=== PATIENT | female | born 1945 | race Caucasian/White ===

== ENCOUNTER 2017-11-20 14:29 | Inpatient (IN) | payer MEDICARE, BC ==
[2017-11-20] MEDS ORDERED: Sodium Chloride 0.9% 1,000 ML IV SCH (16:00)
--- NOTE | 2017-11-20 16:54 | EDM.PDOC ---
ED HPI GENERAL MEDICAL PROBLEM - General Chief Complaint: Neurological Problem Stated Complaint: [facility] Time Seen by Provider: 11/20/17 16:49 Source of Information: Reports: Patient History Limitations: Reports: No Limitations - History of Present Illness INITIAL COMMENTS - FREE TEXT/NARRATIVE: pt was transfered here from [facility] in [place]. She passed out and it appeared she could have had a seizure . The pt was there for a routine check for her lymphoma. She has had some episodes of being lite headed in the past week. She had a Angiogram at [facility] which did not show sig findings, She is drinking quite heavily. She did fall last week. She is trying to cut back on her drinking. She admits to 6-7 drinks daily. Onset: Today, Sudden Duration: Hour(s): Location: Reports: Head Associated Symptoms: Reports: Syncope, Other (possible seizure activity. ) Generalized Pain Score (Numeric/FACES): 2 - Related Data Allergies Allergy/AdvReac Type Severity Reaction Status Date / Time adhesive tape Allergy Itching Verified 03/07/17 12:51 minocycline Allergy Rash Verified 03/07/17 12:51 rituximab Allergy Itching Verified 03/07/17 12:51 tetracycline Allergy Rash Verified 03/07/17 12:51 Home Meds: Home Meds Acetaminophen [Tylenol Extra Strength] 500 mg PO Q6H PRN 03/07/17 [History] Apixaban [Eliquis] 5 mg PO BID 03/07/17 [History] DULoxetine [Cymbalta] 30 mg PO DAILY 03/07/17 [History] DULoxetine [Cymbalta] 60 mg PO DAILY 03/07/17 [History] Fenofibrate 160 mg PO DAILY 03/07/17 [History] Gabapentin [Neurontin] 1,200 mg PO TID 03/07/17 [History] Metoprolol Succinate [Toprol XL] 1 tab PO BID 03/07/17 [History] Diltiazem [Cardizem CD] 120 mg PO DAILY #30 cap.cd 11/22/17 [Rx] Levothyroxine [Synthroid] 100 mcg PO ACBREAKFAST #30 tablet 11/22/17 [Rx] Lisinopril [Prinivil] 10 mg PO BID #60 tablet 11/22/17 [Rx] Metoprolol Succinate [Toprol XL] 25 mg PO BID #60 tab.er 11/22/17 [Rx] Sulfamethoxazole/Trimethoprim [Septra DS] 1 each PO BID #6 tab 11/22/17 [Rx] Past Medical History Cardiovascular History: Reports: Afib, CAD, High Cholesterol, Hypertension Respiratory History: Reports: SOB, Other (See Below) Other Respiratory History: breathing function test Gastrointestinal History: Reports: Other (See Below) Other Gastrointestinal History: prolapsed rectum 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: 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 Musculoskeletal History: Reports: Arthritis Neurological History: Reports: Neuropathy, Peripheral, Other (See Below) Other Neuro History: tremor Endocrine/Metabolic History: Reports: Hypothyroidism Hematologic History: Reports: Other (See Below) Other Hematologic History: lymphoma Oncologic (Cancer) History: Reports: Lymphoma - Infectious Disease History Infectious Disease History: Reports: Shingles - Past Surgical History Cardiovascular Surgical History: Reports: Percutaneous Transluminal Angioplasty GI Surgical History: Reports: Appendectomy, Colonoscopy, Other (See Below) Other GI Surgeries/Procedures: rectum fixed with mesh Female Surgical History: Reports: Hysterectomy, Salpingo-Oophorectomy Social & Family History - Tobacco Use Smoking Status *Q: Former Smoker Used Tobacco, but Quit: Yes Month/Year Tobacco Last Used: 10 - Caffeine Use Caffeine Use: Reports: Coffee Other Caffeine Use: seldom - Alcohol Use Days Per Week of Alcohol Use: 7 Number of Drinks Per Day: 6 Total Drinks Per Week: 42 - Recreational Drug Use Recreational Drug Use: No ED ROS GENERAL - Review of Systems Review Of Systems: See Below Constitutional: Reports: Weakness, Fatigue HEENT: Reports: No Symptoms Respiratory: Reports: No Symptoms Cardiovascular: Reports: No Symptoms Endocrine: Reports: No Symptoms GI/Abdominal: Reports: No Symptoms : Reports: No Symptoms Musculoskeletal: Reports: No Symptoms Skin: Reports: No Symptoms Neurological: Reports: Syncope, Other ( There is a question of seizure activity. ) Psychiatric: Reports: Depression, Other (Pt is drinking heavily) - Physical Exam Exam: See Below Text/Narrative:: Pt has a past history of lymphoma and was at oncology for a follow up. She had an episode of syncope. There waas some tremor so she may have had a seizure. Exam Limited By: Other (Pt has a etoh level of .6) General Appearance: Alert, No Apparent Distress, Other ( Pt is hypotensive. pupils are equal and reactive. ) Ears: Normal TMs Nose: Normal Inspection Throat/Mouth: Normal Inspection Head Exam: Atraumatic Neck: Normal Inspection Respiratory/Chest: No Respiratory Distress Cardiovascular: Regular Rate, Rhythm, Bradycardia, Other ( Pt has a heart rate of 47. ) GI/Abdominal: Soft, Non-Tender (Female) Exam: Deferred Rectal (Female) Exam: Deferred Neuro Exam (Abbreviated): Alert, Oriented, Normal Cognition Back Exam: Normal Inspection Extremities: Normal Inspection Psychiatric: Depressed Mood Course - Vital Signs Last Recorded V/S: Last Vital Signs Temp 37.1 C 11/22/17 07:28 Pulse 80 11/22/17 09:08 Resp 12 11/22/17 07:28 BP 188/86 H 11/22/17 09:08 Pulse Ox 98 11/22/17 07:28 Orthostatic Blood Pressure [ 84/43 Standing] Orthostatic Blood Pressure [ 92/48 Sitting] Orthostatic Blood Pressure [ 99/49 Supine] - Orders/Labs/Meds Labs: Laboratory Tests 11/20/17 11/20/17 11/20/17 Range/Units 15:34 15:34 15:34 WBC 7.4 (4.5-11.0) K/uL RBC 4.30 (3.30-5.50) M/uL Hgb 13.5 (12.0-15.0) g/dL Hct 39.2 (36.0-48.0) % MCV 91 (80-98) fL MCH 31 (27-31) pg MCHC 34 (32-36) % Plt Count 207 (150-400) K/uL Neut % (Auto) 71 H (36-66) % Lymph % (Auto) 8 L (24-44) % [place] % (Auto) 18 H (2-6) % Eos % (Auto) 2 (2-4) % Baso % (Auto) 0 (0-1) % Sodium 133 L (140-148) mmol/L Potassium 3.3 L (3.6-5.2) mmol/L Chloride 98 L (100-108) mmol/L Carbon Dioxide 25 (21-32) mmol/L Anion Gap 13.3 (5.0-14.0) mmol/L BUN 33 H (7-18) mg/dL Creatinine 1.8 H (0.6-1.0) mg/dL Est Cr Clr Drug Dosing 22.68 mL/min Estimated GFR (MDRD) 28 L (>60) Glucose 138 H (74-106) mg/dL Calcium 9.9 (8.5-10.1) mg/dL Total Bilirubin 0.7 (0.2-1.0) mg/dL AST 37 (15-37) U/L ALT 42 (12-78) U/L Alkaline Phosphatase 58 (46-116) U/L Troponin I < 0.017 (0.000-0.056) ng/mL Total Protein 6.6 (6.4-8.2) g/dL Albumin 3.6 (3.4-5.0) g/dL Globulin 3.0 (2.3-3.5) g/dL Albumin/Globulin Ratio 1.2 (1.2-2.2) TSH, Ultra Sensitive (0.358-3.740) uIU/mL Ethyl Alcohol 60 mg/dL 11/20/17 Range/Units 16:34 WBC (4.5-11.0) K/uL RBC (3.30-5.50) M/uL Hgb (12.0-15.0) g/dL Hct (36.0-48.0) % MCV (80-98) fL MCH (27-31) pg MCHC (32-36) % Plt Count (150-400) K/uL Neut % (Auto) (36-66) % Lymph % (Auto) (24-44) % [place] % (Auto) (2-6) % Eos % (Auto) (2-4) % Baso % (Auto) (0-1) % Sodium (140-148) mmol/L Potassium (3.6-5.2) mmol/L Chloride (100-108) mmol/L Carbon Dioxide (21-32) mmol/L Anion Gap (5.0-14.0) mmol/L BUN (7-18) mg/dL Creatinine (0.6-1.0) mg/dL Est Cr Clr Drug Dosing mL/min Estimated GFR (MDRD) (>60) Glucose (74-106) mg/dL Calcium (8.5-10.1) mg/dL Total Bilirubin (0.2-1.0) mg/dL AST (15-37) U/L ALT (12-78) U/L Alkaline Phosphatase (46-116) U/L Troponin I (0.000-0.056) ng/mL Total Protein (6.4-8.2) g/dL Albumin (3.4-5.0) g/dL Globulin (2.3-3.5) g/dL Albumin/Globulin Ratio (1.2-2.2) TSH, Ultra Sensitive 6.640 H (0.358-3.740) uIU/mL Ethyl Alcohol mg/dL Meds: Medications Discontinued Medications Generic Name Dose Route Start Last Admin Trade Name Freq PRN Reason Stop Dose Admin Acetaminophen 650 mg 11/20/17 19:30 11/20/17 20:34 Tylenol PO 650 mg Q4H PRN Administration Pain (Mild 1-3)/fever Apixaban 5 mg 11/20/17 21:00 11/22/17 09:07 Eliquis PO 5 mg BID NICOLA Administration Diltiazem HCl 120 mg 11/21/17 09:00 11/22/17 09:08 Cardizem Cd PO 120 mg DAILY NICOLA Administration Duloxetine HCl 60 mg 11/21/17 09:00 11/22/17 09:09 Cymbalta PO 60 mg DAILY NICOLA Administration Fenofibrate 134 mg 11/21/17 09:00 11/22/17 09:07 Fenofibrate PO 134 mg DAILY NICOLA Administration Folic Acid 1 mg 11/20/17 19:30 11/22/17 09:07 Folic Acid PO 1 mg DAILY NICOLA Administration Gabapentin 400 mg 11/20/17 21:00 11/21/17 08:24 Neurontin PO 400 mg TID NICOLA Administration Gabapentin 600 mg 11/21/17 14:00 11/22/17 09:07 Neurontin PO 600 mg TID NICOLA Administration Hydralazine HCl 10 mg 11/22/17 01:10 11/22/17 01:32 Apresoline IVPUSH 10 mg Q4H PRN Administration Hypertension Sodium Chloride 1,000 mls @ 500 mls/hr 11/20/17 16:00 11/20/17 16:32 Normal Saline IV 500 mls/hr ASDIRECTED NICOLA Administration Sodium Chloride 1,000 mls @ 125 mls/hr 11/20/17 19:30 11/21/17 04:37 Normal Saline IV 125 mls/hr ASDIRECTED NICOLA Administration Ceftriaxone Sodium 1 gm/ 50 mls @ 100 mls/hr 11/20/17 22:00 11/21/17 21:07 Sodium Chloride IV 100 mls/hr Q24H NICOLA Administration Levothyroxine Sodium 88 mcg 11/21/17 07:30 11/21/17 08:25 Synthroid PO 88 mcg ACBREAKFAST NICOLA Administration Levothyroxine Sodium 100 mcg 11/22/17 07:30 11/22/17 07:49 Synthroid PO 100 mcg ACBREAKFAST NICOLA Administration Lisinopril 10 mg 11/22/17 09:00 11/22/17 09:08 Prinivil PO 10 mg BID NICOLA Administration Lorazepam 0 mg 11/20/17 19:30 11/21/17 23:13 Ativan PO 1 mg ASDIRECTED NICOLA Administration Protocol Lorazepam 0 mg 11/20/17 19:30 Ativan IV ASDIRECTED NICLOA Protocol Magnesium Hydroxide 30 ml 11/20/17 19:30 Milk Of Magnesia PO Q12H PRN Constipation Metoprolol Succinate 25 mg 11/21/17 09:00 11/22/17 09:08 Toprol Xl PO 25 mg BID NICOLA Administration Ondansetron HCl 4 mg 11/20/17 19:30 Zofran IV Q4H PRN Nausea/Vomiting Oxycodone HCl 5 mg 11/20/17 20:12 11/22/17 09:07 Oxycodone PO 5 mg Q4H PRN Administration Pain Polyethylene Glycol 17 gm 11/20/17 19:30 Miralax PO DAILY PRN Constipation Potassium Chloride 40 meq 11/20/17 19:30 11/20/17 20:31 Klor-Con M20 PO 11/20/17 19:31 40 meq ONETIME ONE Administration Senna/Docusate Sodium 1 tab 11/20/17 19:30 Senna Plus PO BID PRN Constipation Sodium Chloride 10 ml 11/20/17 19:30 Saline Flush FLUSH ASDIRECTED PRN Keep Vein Open Thiamine HCl 100 mg 11/20/17 19:30 11/22/17 09:07 Vitamin B-1 PO 100 mg DAILY NICOLA Administration - Re-Assessments/Exams Free Text/Narrative Re-Assessment/Exam: 11/22/17 18:11 cat scan of th head was normal. Departure - Departure Time of Disposition: 09:10 Disposition: Admitted As Inpatient 64 Condition: Fair Clinical Impression: AA (alcohol abuse), Hypotension, Syncope - Discharge Information
--- NOTE | 2017-11-20 18:50 | PCM.HP ---
H&P History of Present Illness - General Date of Service: 11/20/17 Admit Problem/Dx: Admission Diagnosis/Problem Admission Diagnosis/Problem Syncope Source of Information: Patient, Family, Provider, RN Notes Reviewed History Limitations: Reports: No Limitations - History of Present Illness Initial Comments - Free Text/Narative: Ms. Aguilera is a 72-year-old woman who is admitted through the emergency department after experiencing a syncopal episode earlier this afternoon. She was in the oncologist's office for follow-up of her lymphoma, when she sat up on the exam table felt very weak and lightheaded and quickly passed out. There was some mild shaking after she passed out but this did not appear to be a full- blown seizure. She has had ongoing difficulty with weakness and shortness of breath, recently completed cardiac evaluation including angiogram. She was told that she had mild coronary artery disease but did not require intervention. She is recently been seen by pulmonology and did undergo pulmonary function studies , she is still waiting for those results. She has a known history of paroxysmal atrial fibrillation. Her dose of metoprolol has been doubled within the past several weeks. She does drink alcohol daily and her alcohol level was elevated when evaluated in the emergency department. She denies any symptoms of chest pain or pressure and there is been no evidence of underlying infection. Blood pressure was significantly low when she presented to the emergency department with systolic pressures in the 70s and heart rate has been in the 40s and 50s. - Related Data Allergies/Adverse Reactions: Allergies Allergy/AdvReac Type Severity Reaction Status Date / Time adhesive tape Allergy Itching Verified 03/07/17 12:51 minocycline Allergy Rash Verified 03/07/17 12:51 rituximab Allergy Itching Verified 03/07/17 12:51 tetracycline Allergy Rash Verified 03/07/17 12:51 Home Medications: Home Meds Acetaminophen [Tylenol Extra Strength] 500 mg PO Q6H PRN 03/07/17 [History] Apixaban [Eliquis] 5 mg PO BID 03/07/17 [History] DULoxetine [Cymbalta] 30 mg PO DAILY 03/07/17 [History] DULoxetine [Cymbalta] 60 mg PO DAILY 03/07/17 [History] Diltiazem [Cardizem CD] 240 mg PO DAILY 03/07/17 [History] Fenofibrate 160 mg PO DAILY 03/07/17 [History] Gabapentin [Neurontin] 1,200 mg PO TID 03/07/17 [History] Levothyroxine [Synthroid] 88 mcg PO DAILY 03/07/17 [History] Metoprolol Succinate [Toprol XL] 1 tab PO BID 03/07/17 [History] Past Medical History Cardiovascular History: Reports: Afib, CAD, High Cholesterol, Hypertension Other Cardiovascular History: paroxysmal a- fib Respiratory History: Reports: SOB, Other (See Below) Other Respiratory History: breathing function test Gastrointestinal History: Reports: Other (See Below) Other Gastrointestinal History: prolapsed rectum 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 Musculoskeletal History: Reports: Arthritis Other Musculoskeletal History: degenerative disc cervical Neurological History: Reports: Neuropathy, Peripheral, Other (See Below) Other Neuro History: tremor Psychiatric History: Reports: Addiction, Depression Endocrine/Metabolic History: Reports: Hypothyroidism Hematologic History: Reports: Other (See Below) Other Hematologic History: lymphoma Oncologic (Cancer) History: Reports: Lymphoma Other Oncologic History: left breast Dermatologic History: Reports: Other (See Below) Other Dermatologic History: pruritus - Infectious Disease History Infectious Disease History: Reports: Shingles - Past Surgical History Cardiovascular Surgical History: Reports: Percutaneous Transluminal Angioplasty GI Surgical History: Reports: Appendectomy, Colonoscopy, Other (See Below) Other GI Surgeries/Procedures: rectum fixed with mesh Female Surgical History: Reports: Hysterectomy, Salpingo-Oophorectomy Social & Family History - Tobacco Use Smoking Status *Q: Former Smoker Used Tobacco, but Quit: Yes Month/Year Tobacco Last Used: 10 - Caffeine Use Caffeine Use: Reports: Coffee Other Caffeine Use: seldom - Alcohol Use Days Per Week of Alcohol Use: 7 Number of Drinks Per Day: 6 Total Drinks Per Week: 42 - Recreational Drug Use Recreational Drug Use: No H&P Review of Systems - Review of Systems: Review Of Systems: See Below General: Reports: Weakness, Decreased Appetite. Denies: Fever, Chills HEENT: Reports: No Symptoms Pulmonary: Reports: Shortness of Breath. Denies: Wheezing, Pleuritic Chest Pain , Cough, Sputum Cardiovascular: Reports: Dyspnea on Exertion, Lightheadedness, Syncope. Denies : Chest Pain, Palpitations, Orthopnea, PND, Edema Gastrointestinal: Reports: No Symptoms Genitourinary: Reports: No Symptoms Musculoskeletal: Reports: Neck Pain Skin: Reports: No Symptoms Psychiatric: Reports: No Symptoms Neurological: Reports: No Symptoms Hematologic/Lymphatic: Reports: No Symptoms Immunologic: Reports: No Symptoms Exam - Exam Exam: See Below - Vital Signs Vital Signs: Last Vital Signs Temp 96.1 F 11/20/17 14:41 Pulse 46 L 11/20/17 17:16 Resp 16 11/20/17 17:16 BP 106/56 L 11/20/17 17:16 Pulse Ox 95 11/20/17 17:16 Orthostatic Blood Pressure [ 84/43 Standing] Orthostatic Blood Pressure [ 92/48 Sitting] Orthostatic Blood Pressure [ 99/49 Supine] Weight: 138 lb 11.2 oz - Exam Quality Assessment: DVT Prophylaxis General: Alert, Oriented, Cooperative, Mild Distress HEENT: Conjunctiva Clear, Hearing Intact, Normal Nasal Septum, Posterior Pharynx Clear, Pupils Equal. No: Mucosa Moist & [place] Neck: Supple, Trachea Midline, +2 Carotid Pulse wo Bruit Lungs: Clear to Auscultation, Normal Respiratory Effort Cardiovascular: Regular Rhythm, Normal S1, Normal S2, Bradycardia. No: Systolic Murmur, Diastolic Murmur GI/Abdominal Exam: Soft, Non-Tender, No Organomegaly, No Distention Back Exam: Normal Inspection, Full Range of Motion Extremities: Non-Tender, No Pedal Edema Skin: Warm, Dry, Intact Neurological: Cranial Nerves Intact, Strength Equal Bilateral, Normal Speech, Normal Tone, Sensation Intact. No: Focal Deficit Neuro Extensive - Mental Status: Alert, Oriented x3, Normal Mood/Affect, Normal Cognition, Memory Intact - Patient Data Lab Results Last 24 hrs: Laboratory Results - last 24 hr 11/20/17 11/20/17 11/20/17 Range/Units 15:34 15:34 15:34 WBC 7.4 (4.5-11.0) K/uL RBC 4.30 (3.30-5.50) M/uL Hgb 13.5 (12.0-15.0) g/dL Hct 39.2 (36.0-48.0) % MCV 91 (80-98) fL MCH 31 (27-31) pg MCHC 34 (32-36) % Plt Count 207 (150-400) K/uL Neut % (Auto) 71 H (36-66) % Lymph % (Auto) 8 L (24-44) % [place] % (Auto) 18 H (2-6) % Eos % (Auto) 2 (2-4) % Baso % (Auto) 0 (0-1) % Sodium 133 L (140-148) mmol/L Potassium 3.3 L (3.6-5.2) mmol/L Chloride 98 L (100-108) mmol/L Carbon Dioxide 25 (21-32) mmol/L Anion Gap 13.3 (5.0-14.0) mmol/L BUN 33 H (7-18) mg/dL Creatinine 1.8 H (0.6-1.0) mg/dL Est Cr Clr Drug Dosing 22.68 mL/min Estimated GFR (MDRD) 28 L (>60) Glucose 138 H (74-106) mg/dL Calcium 9.9 (8.5-10.1) mg/dL Total Bilirubin 0.7 (0.2-1.0) mg/dL AST 37 (15-37) U/L ALT 42 (12-78) U/L Alkaline Phosphatase 58 (46-116) U/L Troponin I < 0.017 (0.000-0.056) ng/mL Total Protein 6.6 (6.4-8.2) g/dL Albumin 3.6 (3.4-5.0) g/dL Globulin 3.0 (2.3-3.5) g/dL Albumin/Globulin Ratio 1.2 (1.2-2.2) TSH, Ultra Sensitive (0.358-3.740) uIU/mL Ethyl Alcohol 60 mg/dL 11/20/17 Range/Units 16:34 WBC (4.5-11.0) K/uL RBC (3.30-5.50) M/uL Hgb (12.0-15.0) g/dL Hct (36.0-48.0) % MCV (80-98) fL MCH (27-31) pg MCHC (32-36) % Plt Count (150-400) K/uL Neut % (Auto) (36-66) % Lymph % (Auto) (24-44) % [place] % (Auto) (2-6) % Eos % (Auto) (2-4) % Baso % (Auto) (0-1) % Sodium (140-148) mmol/L Potassium (3.6-5.2) mmol/L Chloride (100-108) mmol/L Carbon Dioxide (21-32) mmol/L Anion Gap (5.0-14.0) mmol/L BUN (7-18) mg/dL Creatinine (0.6-1.0) mg/dL Est Cr Clr Drug Dosing mL/min Estimated GFR (MDRD) (>60) Glucose (74-106) mg/dL Calcium (8.5-10.1) mg/dL Total Bilirubin (0.2-1.0) mg/dL AST (15-37) U/L ALT (12-78) U/L Alkaline Phosphatase (46-116) U/L Troponin I (0.000-0.056) ng/mL Total Protein (6.4-8.2) g/dL Albumin (3.4-5.0) g/dL Globulin (2.3-3.5) g/dL Albumin/Globulin Ratio (1.2-2.2) TSH, Ultra Sensitive 6.640 H (0.358-3.740) uIU/mL Ethyl Alcohol mg/dL Result Diagrams: 11/20/17 15:34 11/20/17 15:34 *Q Meaningful Use (ADM) - VTE *Q VTE Pharmacological Contraindications *Q: High INR Value - VTE Risk Assess *Q Each Risk Factor Represents 1 Point: None Total Score 1 Point Risk Factors: 0 Each Risk Factor Represents 2 Points: Age 60 - 74 Years, Malignancy (present or previous) Total Score 2 Point Risk Factors: 4 Each Risk Factor Represents 3 Points: None Total Score 3 Point Risk Factors: 0 Each Risk Factor Represents 5 Points: None Total Score 5 Point Risk Factors: 0 Venous Thromboembolism Risk Factor Score *Q: 4 Problem List Initiated/Reviewed/Updated: Yes Orders Last 24hrs: Active Orders 24 hr Category Date Time Status Patient Status Manage Transfer [TRANSFER] Routine ADT 11/20/17 18:35 Ordered EKG Documentation Completion [RC] ASDIRECTED Care 11/20/17 15:35 Active Orthostatic Vital Signs [RC] ASDIRECTED Care 11/20/17 15:46 Active Head wo Cont [CT] Stat Exams 11/20/17 16:36 Taken UA W/MICROSCOPIC [URIN] Urgent Lab 11/20/17 15:34 Ordered Sodium Chloride 0.9% [Normal Saline] 1,000 ml Med 11/20/17 16:00 Active IV ASDIRECTED Resuscitation Status Routine Resus Stat 11/20/17 18:39 Ordered EKG 12 Lead [EK] Routine Ther 11/20/17 15:35 Ordered Medication Orders Sodium Chloride (Normal Saline) 1,000 mls @ 500 mls/hr IV ASDIRECTED NICOLA Last Admin: 11/20/17 16:32 Dose: 500 mls/hr Assessment/Plan Comment:: ASSESSMENT AND PLAN SYNCOPAL EPISODE-in the preceding week has had almost daily episodes of lightheadedness, appetite has been poor with poor oral intake. Episode occurred at the oncologist's office after she moved to get onto the examination table. There was brief shaking but this did not appear to be a full-blown seizure. On evaluation in the emergency department she is noted to have significant hypotension and bradycardia which are likely cause of her syncopal episode as well as dehydration. -Cardiac monitoring -Orthostatic vital signs -Hold metoprolol and diltiazem, reassess dosing in a.m. -IV fluids for hydration ACUTE KIDNEY INJURY-likely secondary to dehydration -IV fluids as above -Closely monitor urine output and renal function ALCOHOL DEPENDENCE-history of long-standing daily alcohol use, alcohol level was of elevated when evaluated in the emergency department -Alcohol withdrawal protocol -Gabapentin 400 mg every 8 hours HYPOTHYROIDISM-TSH found to be elevated in the emergency department -Free T4 and free T3 levels in a.m. -Pending on levels assess and adjust current dose of levothyroxine MAINTENANCE ISSUES -DVT prophylaxis; current anticoagulation should provide adequate DVT prophylaxis -GI prophylaxis; not indicated -Espinoza catheter; not indicated -Nutrition; regular diet -Nicotine dependence; not required CODE STATUS-FULL CODE ADMISSION STATUS-patient will be admitted to inpatient status, expect at least a 2 night hospital stay for evaluation and management of problems as outlined above. At the time of this admission I do not reasonably expected evaluation and management of this problem will require more than a 96 hour hospital stay. DISPOSITION-anticipate discharge to home after the hospital stay. PRIMARY CARE PROVIDER-Dr. Alfred
[2017-11-20] MEDS ORDERED: Sodium Chloride 0.9% 10 ML Syringe FLUSH PRN (19:30)
[2017-11-20] MEDS ORDERED: Ondansetron 4 MG/2 ML SDV IV PRN (19:30)
[2017-11-20] MEDS ORDERED: Polyethylene Glycol 3350 Powder 17 GM Packet PO PRN (19:30)
[2017-11-20] MEDS ORDERED: Acetaminophen 325 MG Tab PO PRN (19:30)
[2017-11-20] MEDS ORDERED: LORazepam 2 MG/ML SDV IV SCH (19:30)
[2017-11-20] MEDS ORDERED: LORazepam 1 MG Tab PO SCH (19:30)
[2017-11-20] MEDS ORDERED: Magnesium Hydroxide 400 MG/5 ML Susp 30 ML Cup PO PRN (19:30)
[2017-11-20] MEDS ORDERED: Potassium Chloride 20 MEQ Tab.ER PO ONE (19:30)
[2017-11-20] MEDS: Thiamine 100 MG Tab PO SCH (20:31)
[2017-11-20] MEDS: Sodium Chloride 0.9% 1,000 ML IV SCH (20:31)
[2017-11-20] MEDS: Folic Acid 1 MG Tab PO SCH (20:31)
[2017-11-20] MEDS: Gabapentin 400 MG Cap PO SCH (20:31)
[2017-11-20] MEDS: Apixaban 5 MG Tab PO SCH (20:31)
[2017-11-20] MEDS: oxyCODONE 5 MG Tab PO PRN (20:34)
[2017-11-20] MEDS: cefTRIAXone 1 GM in Sodium Chloride 0.9% 50 ML IV SCH (22:15)
[2017-11-21] MEDS: oxyCODONE 5 MG Tab PO PRN ×3 (03:34→23:13)
[2017-11-21] MEDS: Sodium Chloride 0.9% 1,000 ML IV SCH (04:37)
[2017-11-21] MEDS ORDERED: Levothyroxine 88 MCG Tab PO SCH (07:30)
[2017-11-21] MEDS ORDERED: Levothyroxine 100 MCG Tab PO SCH (07:30)
[2017-11-21] MEDS: Thiamine 100 MG Tab PO SCH (08:24)
[2017-11-21] MEDS: Folic Acid 1 MG Tab PO SCH (08:24)
[2017-11-21] MEDS: Gabapentin 400 MG Cap PO SCH (08:24)
[2017-11-21] MEDS: Apixaban 5 MG Tab PO SCH ×2 (08:24→20:41)
[2017-11-21] MEDS: DULoxetine 30 MG Cap PO SCH (08:25)
[2017-11-21] MEDS: Fenofibrate,Micronized 67 MG Cap PO SCH (08:25)
[2017-11-21] MEDS ORDERED: DILTIAZEM 120 MG PO SCH (09:00)
[2017-11-21] MEDS: Diltiazem 120 MG Cap.CD PO SCH (09:34)
[2017-11-21] MEDS: Metoprolol Succinate 25 MG Tab.ER PO SCH ×2 (09:35→20:41)
--- NOTE | 2017-11-21 09:53 | PCM.PN ---
- General Info Date of Service: 11/21/17 Subjective Update: Ms. Aguilera has been stable since admission yesterday, hypotension has resolved and bradycardia has improved. No significant drop with orthostatic vital signs and no significant dysrhythmias other than bradycardia noted on monitoring. Denies current symptoms of lightheadedness when sitting up in the chair. - Review of Systems General: Reports: Weakness. Denies: Fever, Chills Pulmonary: Reports: No Symptoms Cardiovascular: Reports: No Symptoms Gastrointestinal: Reports: No Symptoms Musculoskeletal: Reports: Neck Pain - Patient Data Vitals - Most Recent: Last Vital Signs Temp 96.7 F 11/21/17 07:54 Pulse 67 11/21/17 09:35 Resp 16 11/21/17 07:54 BP 157/80 H 11/21/17 09:35 Pulse Ox 100 11/21/17 07:54 Orthostatic Blood Pressure [ 177/85 Standing] Orthostatic Blood Pressure [ 202/100 Sitting] Orthostatic Blood Pressure [ 190/96 Supine] Weight - Most Recent: 315 lb 0.649 oz I&O - Last 24 Hours: Intake & Output 11/20/17 11/21/17 11/21/17 22:59 06:59 14:59 Intake Total 50 1392 600 Output Total 75 300 Balance -25 1092 600 Lab Results Last 24 Hours: Laboratory Results - last 24 hr 11/20/17 11/20/17 11/20/17 Range/Units 15:34 15:34 15:34 WBC 7.4 (4.5-11.0) K/uL RBC 4.30 (3.30-5.50) M/uL Hgb 13.5 (12.0-15.0) g/dL Hct 39.2 (36.0-48.0) % MCV 91 (80-98) fL MCH 31 (27-31) pg MCHC 34 (32-36) % Plt Count 207 (150-400) K/uL Neut % (Auto) 71 H (36-66) % Lymph % (Auto) 8 L (24-44) % [place] % (Auto) 18 H (2-6) % Eos % (Auto) 2 (2-4) % Baso % (Auto) 0 (0-1) % Sodium 133 L (140-148) mmol/L Potassium 3.3 L (3.6-5.2) mmol/L Chloride 98 L (100-108) mmol/L Carbon Dioxide 25 (21-32) mmol/L Anion Gap 13.3 (5.0-14.0) mmol/L BUN 33 H (7-18) mg/dL Creatinine 1.8 H (0.6-1.0) mg/dL Est Cr Clr Drug Dosing 22.68 mL/min Estimated GFR (MDRD) 28 L (>60) Glucose 138 H (74-106) mg/dL Calcium 9.9 (8.5-10.1) mg/dL Total Bilirubin 0.7 (0.2-1.0) mg/dL AST 37 (15-37) U/L ALT 42 (12-78) U/L Alkaline Phosphatase 58 (46-116) U/L Troponin I < 0.017 (0.000-0.056) ng/mL Total Protein 6.6 (6.4-8.2) g/dL Albumin 3.6 (3.4-5.0) g/dL Globulin 3.0 (2.3-3.5) g/dL Albumin/Globulin Ratio 1.2 (1.2-2.2) Free T4 (0.76-1.46) ng/dL Free T3 (2.18-3.98) pg/dL TSH, Ultra Sensitive (0.358-3.740) uIU/mL Urine Color Urine Appearance Urine pH (4.5-8.0) Ur Specific [place] (1.008-1.030) Urine Protein (NEGATIVE) mg/dL Urine Glucose (UA) (NEGATIVE) mg/dL Urine Ketones (NEGATIVE) mg/dL Urine Occult Blood (NEGATIVE) Urine Nitrite (NEGATIVE) Urine Bilirubin (NEGATIVE) Urine Urobilinogen (NORMAL) mg/dL Ur Leukocyte Esterase (NEGATIVE) Urine RBC (0-5) Urine WBC (0-5) Ur Epithelial Cells Amorphous Sediment Urine Bacteria Urine Mucus Urine Other Ethyl Alcohol 60 mg/dL 11/20/17 11/20/17 11/21/17 Range/Units 16:34 19:44 05:45 WBC 4.6 (4.5-11.0) K/uL RBC 3.93 (3.30-5.50) M/uL Hgb 12.4 (12.0-15.0) g/dL Hct 36.8 (36.0-48.0) % MCV 94 (80-98) fL MCH 32 H (27-31) pg MCHC 34 (32-36) % Plt Count 190 (150-400) K/uL Neut % (Auto) 62 (36-66) % Lymph % (Auto) 16 L (24-44) % Wetzel % (Auto) 17 H (2-6) % Eos % (Auto) 5 H (2-4) % Baso % (Auto) 0 (0-1) % Sodium (140-148) mmol/L Potassium (3.6-5.2) mmol/L Chloride (100-108) mmol/L Carbon Dioxide (21-32) mmol/L Anion Gap (5.0-14.0) mmol/L BUN (7-18) mg/dL Creatinine (0.6-1.0) mg/dL Est Cr Clr Drug Dosing mL/min Estimated GFR (MDRD) (>60) Glucose (74-106) mg/dL Calcium (8.5-10.1) mg/dL Total Bilirubin (0.2-1.0) mg/dL AST (15-37) U/L ALT (12-78) U/L Alkaline Phosphatase (46-116) U/L Troponin I (0.000-0.056) ng/mL Total Protein (6.4-8.2) g/dL Albumin (3.4-5.0) g/dL Globulin (2.3-3.5) g/dL Albumin/Globulin Ratio (1.2-2.2) Free T4 (0.76-1.46) ng/dL Free T3 (2.18-3.98) pg/dL TSH, Ultra Sensitive 6.640 H (0.358-3.740) uIU/mL Urine Color Yellow Urine Appearance Slightly cloudy Urine pH 5.0 (4.5-8.0) Ur Specific [place] 1.030 (1.008-1.030) Urine Protein Negative (NEGATIVE) mg/dL Urine Glucose (UA) 100 H (NEGATIVE) mg/dL Urine Ketones Negative (NEGATIVE) mg/dL Urine Occult Blood Negative (NEGATIVE) Urine Nitrite Negative (NEGATIVE) Urine Bilirubin Negative (NEGATIVE) Urine Urobilinogen Normal (NORMAL) mg/dL Ur Leukocyte Esterase Small (NEGATIVE) Urine RBC 0-5 (0-5) Urine WBC 10-20 H (0-5) Ur Epithelial Cells Few Amorphous Sediment Not seen Urine Bacteria Moderate Urine Mucus Moderate Urine Other Ethyl Alcohol mg/dL 11/21/17 Range/Units 05:45 WBC (4.5-11.0) K/uL RBC (3.30-5.50) M/uL Hgb (12.0-15.0) g/dL Hct (36.0-48.0) % MCV (80-98) fL MCH (27-31) pg MCHC (32-36) % Plt Count (150-400) K/uL Neut % (Auto) (36-66) % Lymph % (Auto) (24-44) % [place] % (Auto) (2-6) % Eos % (Auto) (2-4) % Baso % (Auto) (0-1) % Sodium 138 L (140-148) mmol/L Potassium 3.9 (3.6-5.2) mmol/L Chloride 105 (100-108) mmol/L Carbon Dioxide 28 (21-32) mmol/L Anion Gap 8.9 (5.0-14.0) mmol/L BUN 28 H (7-18) mg/dL Creatinine 1.1 H (0.6-1.0) mg/dL Est Cr Clr Drug Dosing 37.12 mL/min Estimated GFR (MDRD) 49 L (>60) Glucose 123 H (74-106) mg/dL Calcium 9.0 (8.5-10.1) mg/dL Total Bilirubin (0.2-1.0) mg/dL AST (15-37) U/L ALT (12-78) U/L Alkaline Phosphatase (46-116) U/L Troponin I (0.000-0.056) ng/mL Total Protein (6.4-8.2) g/dL Albumin (3.4-5.0) g/dL Globulin (2.3-3.5) g/dL Albumin/Globulin Ratio (1.2-2.2) Free T4 0.93 (0.76-1.46) ng/dL Free T3 1.93 L (2.18-3.98) pg/dL TSH, Ultra Sensitive (0.358-3.740) uIU/mL Urine Color Urine Appearance Urine pH (4.5-8.0) Ur Specific [place] (1.008-1.030) Urine Protein (NEGATIVE) mg/dL Urine Glucose (UA) (NEGATIVE) mg/dL Urine Ketones (NEGATIVE) mg/dL Urine Occult Blood (NEGATIVE) Urine Nitrite (NEGATIVE) Urine Bilirubin (NEGATIVE) Urine Urobilinogen (NORMAL) mg/dL Ur Leukocyte Esterase (NEGATIVE) Urine RBC (0-5) Urine WBC (0-5) Ur Epithelial Cells Amorphous Sediment Urine Bacteria Urine Mucus Urine Other Ethyl Alcohol mg/dL Med Orders - Current: Current Medications Acetaminophen (Tylenol) 650 mg PO Q4H PRN PRN Reason: Pain (Mild 1-3)/fever Last Admin: 11/20/17 20:34 Dose: 650 mg Apixaban (Eliquis) 5 mg PO BID [facility] Last Admin: 11/21/17 08:24 Dose: 5 mg Diltiazem HCl (Cardizem Cd) 120 mg PO DAILY [facility] Last Admin: 11/21/17 09:34 Dose: 120 mg Duloxetine HCl (Cymbalta) 60 mg PO DAILY [facility] Last Admin: 11/21/17 08:25 Dose: 60 mg Fenofibrate (Fenofibrate) 134 mg PO DAILY [facility] Last Admin: 11/21/17 08:25 Dose: 134 mg Folic Acid (Folic Acid) 1 mg PO DAILY [facility] Last Admin: 11/21/17 08:24 Dose: 1 mg Gabapentin (Neurontin) 400 mg PO TID [facility] Last Admin: 11/21/17 08:24 Dose: 400 mg Ceftriaxone Sodium 1 gm/ (Sodium Chloride) 50 mls @ 100 mls/hr IV Q24H [facility] Last Admin: 11/20/17 22:15 Dose: 100 mls/hr Levothyroxine Sodium (Synthroid) 100 mcg PO ACBREAKFAST [facility] Lorazepam (Ativan) 0 mg PO ASDIRECTED [facility]; Protocol Lorazepam (Ativan) 0 mg IV ASDIRECTED [place]; Protocol Magnesium Hydroxide (Milk Of Magnesia) 30 ml PO Q12H PRN PRN Reason: Constipation Metoprolol Succinate (Toprol Xl) 25 mg PO BID [facility] Last Admin: 11/21/17 09:35 Dose: 25 mg Ondansetron HCl (Zofran) 4 mg IV Q4H PRN PRN Reason: Nausea/Vomiting Oxycodone HCl (Oxycodone) 5 mg PO Q4H PRN PRN Reason: Pain Last Admin: 11/21/17 03:34 Dose: 5 mg Polyethylene Glycol (Miralax) 17 gm PO DAILY PRN PRN Reason: Constipation Senna/Docusate Sodium (Senna Plus) 1 tab PO BID PRN PRN Reason: Constipation Sodium Chloride (Saline Flush) 10 ml FLUSH ASDIRECTED PRN PRN Reason: Keep Vein Open Thiamine HCl (Vitamin B-1) 100 mg PO DAILY [facility] Last Admin: 11/21/17 08:24 Dose: 100 mg Discontinued Medications Sodium Chloride (Normal Saline) 1,000 mls @ 500 mls/hr IV ASDIRECTED [facility] Last Admin: 11/20/17 16:32 Dose: 500 mls/hr Sodium Chloride (Normal Saline) 1,000 mls @ 125 mls/hr IV ASDIRECTED [facility] Last Admin: 11/21/17 04:37 Dose: 125 mls/hr Levothyroxine Sodium (Synthroid) 88 mcg PO ACBREAKFAST [facility] Last Admin: 11/21/17 08:25 Dose: 88 mcg Potassium Chloride (Klor-Con M20) 40 meq PO ONETIME ONE Stop: 11/20/17 19:31 Last Admin: 11/20/17 20:31 Dose: 40 meq - Exam Quality Assessment: DVT Prophylaxis General: Alert, Oriented, Cooperative, Mild Distress Lungs: Clear to Auscultation, Normal Respiratory Effort Cardiovascular: Regular Rhythm, No Murmurs, Bradycardia. No: Irregular Rhythm, Tachycardia GI/Abdominal Exam: Soft, Non-Tender, No Organomegaly, No Distention Extremities: Non-Tender, No Pedal Edema - Problem List Review Problem List Initiated/Reviewed/Updated: Yes - My Orders Last 24 Hours: My Active Orders 11/20/17 18:39 Resuscitation Status Routine 11/20/17 19:30 Patient Status [ADT] Routine Ambulate [RC] QID CIWAA Assessment [RC] Q4H Cardiac Monitoring [RC] Q6H Height and Weight [RC] DAILY Intake and Output [RC] QSHIFT Notify Provider Vital Signs [RC] ASDIRECTED Oxygen Therapy [RC] PRN Peripheral IV Care [RC] . DIRECTED Up With Assistance [RC] ASDIRECTED Up to Chair [RC] QID Vital Signs [RC] Q2H PT Evaluation and Treatment [CONS] Routine Acetaminophen [Tylenol] 650 mg PO Q4H PRN Docusate Sodium/Sennosides [Senna Plus] 1 tab PO BID PRN Folic Acid 1 mg PO DAILY LORazepam [Ativan] See Protocol IV ASDIRECTED LORazepam [Ativan] See Protocol PO ASDIRECTED Magnesium Hydroxide [Milk of Magnesia] 30 ml PO Q12H PRN Ondansetron [Zofran] 4 mg IV Q4H PRN Polyethylene Glycol 3350 [MiraLAX] 17 gm PO DAILY PRN Sodium Chloride 0.9% [Saline Flush] 10 ml FLUSH ASDIRECTED PRN Thiamine [Vitamin B-1] 100 mg PO DAILY Peripheral IV Insertion Adult [OM.PC] Routine VTE Pharmacological Contraindications [AST] Per Unit Routine 11/20/17 20:00 CULTURE URINE [RM] Routine 11/20/17 20:12 oxyCODONE 5 mg PO Q4H PRN 11/20/17 21:00 Apixaban [Eliquis] 5 mg PO BID Gabapentin [Neurontin] 400 mg PO TID 11/20/17 22:00 cefTRIAXone [Rocephin] 1 gm Sodium Chloride 0.9% [Normal Saline] 50 ml IV Q24H 11/20/17 Dinner Regular Diet [DIET] 11/21/17 08:30 Convert IV to Saline Lock [OM.PC] Routine 11/21/17 09:00 DULoxetine [Cymbalta] 60 mg PO DAILY Diltiazem [Cardizem CD] 120 mg PO DAILY Fenofibrate,Micronized [Fenofibrate] 134 mg PO DAILY Metoprolol Succinate [Toprol XL] 25 mg PO BID 11/22/17 05:00 BASIC METABOLIC PANEL,BMP [CHEM] Timed 11/22/17 07:30 Levothyroxine [Synthroid] 100 mcg PO ACBREAKFAST - Plan Plan:: ASSESSMENT AND PLAN SYNCOPAL EPISODE-lightheadedness has resolved, remains somewhat weak. -Cardiac monitoring -Orthostatic vital signs -Resume metoprolol, decrease dose to 25 mg by mouth twice a day -Resume diltiazem CD, decrease dose to 120 mg daily -Saline lock IV ACUTE KIDNEY INJURY-likely secondary to dehydration, renal function improved following hydration -Closely monitor urine output and renal function ALCOHOL DEPENDENCE-history of long-standing daily alcohol use, alcohol level was of elevated when evaluated in the emergency department -Alcohol withdrawal protocol -Gabapentin 400 mg every 8 hours HYPOTHYROIDISM-TSH elevated and T3 level mildly low -Increase levothyroxine to 100 g by mouth daily MAINTENANCE ISSUES -DVT prophylaxis; current anticoagulation should provide adequate DVT prophylaxis -GI prophylaxis; not indicated -Espinoza catheter; not indicated -Nutrition; regular diet -Nicotine dependence; not required CODE STATUS-FULL CODE ADMISSION STATUS-patient will be admitted to inpatient status, expect at least a 2 night hospital stay for evaluation and management of problems as outlined above. At the time of this admission I do not reasonably expected evaluation and management of this problem will require more than a 96 hour hospital stay. DISPOSITION-anticipate discharge to home after the hospital stay. PRIMARY CARE PROVIDER-Dr. Alfred
[2017-11-21] MEDS: Gabapentin 300 MG Cap PO SCH ×2 (13:38→20:39)
[2017-11-21] MEDS ORDERED: Gabapentin 400 MG Cap PO SCH (14:00)
[2017-11-21] MEDS: cefTRIAXone 1 GM in Sodium Chloride 0.9% 50 ML IV SCH (21:07)
[2017-11-22] MEDS ORDERED: hydrALAZINE 20 MG/ML SDV IVPUSH PRN (01:10)
[2017-11-22] MEDS ORDERED: Levothyroxine 100 MCG Tab PO SCH (07:30)
[2017-11-22] MEDS ORDERED: Levothyroxine 88 MCG Tab PO SCH (07:30)
[2017-11-22] MEDS ORDERED: Lisinopril 10 MG Tab PO SCH (09:00)
[2017-11-22] MEDS: Gabapentin 300 MG Cap PO SCH (09:07)
[2017-11-22] MEDS: Apixaban 5 MG Tab PO SCH (09:07)
[2017-11-22] MEDS: Thiamine 100 MG Tab PO SCH (09:07)
[2017-11-22] MEDS: oxyCODONE 5 MG Tab PO PRN (09:07)
[2017-11-22] MEDS: Folic Acid 1 MG Tab PO SCH (09:07)
[2017-11-22] MEDS: Fenofibrate,Micronized 67 MG Cap PO SCH (09:07)
[2017-11-22] MEDS: Metoprolol Succinate 25 MG Tab.ER PO SCH (09:08)
[2017-11-22] MEDS: Diltiazem 120 MG Cap.CD PO SCH (09:08)
[2017-11-22] MEDS: DULoxetine 30 MG Cap PO SCH (09:09)
--- NOTE | 2017-11-22 09:55 | PCM.DCSUM1 ---
Discharge Summary - Hospital Course Brief History: This patient is a 72-year-old woman who was admitted through the emergency department after she experienced a syncopal episode secondary to hypotension and bradycardia. - Discharge Data Discharge Date: 11/22/17 Discharge Disposition: Home, Self-Care 01 Condition: Fair - Discharge Diagnosis/Problem(s) (1) Hypothyroidism (acquired) SNOMED Code(s): 486762024 ICD Code: E03.9 - HYPOTHYROIDISM, UNSPECIFIED Status: Acute Current Visit : Yes (2) Acute kidney injury SNOMED Code(s): 72236756 ICD Code: N17.9 - ACUTE KIDNEY FAILURE, UNSPECIFIED Status: Acute Current Visit: Yes (3) Episode of syncope SNOMED Code(s): 537806809 ICD Code: R55 - SYNCOPE AND COLLAPSE Status: Acute Current Visit: Yes (4) Alcohol dependence SNOMED Code(s): 31141821 ICD Code: F10.20 - ALCOHOL DEPENDENCE, UNCOMPLICATED Status: Chronic Current Visit: No (5) UTI (urinary tract infection) SNOMED Code(s): 96699995 ICD Code: N39.0 - URINARY TRACT INFECTION, SITE NOT SPECIFIED Status: Acute Current Visit: Yes - Patient Summary/Data Consults: Consultations 11/20/17 19:30 PT Evaluation and Treatment [CONS] Routine Please Evaluate and Treat. PT Reason for Consult: Weakness This query below is only for informational purposes and is not editable. Hospital Course: Ms. Aguilera is a 72-year-old woman who is admitted through the emergency department after experiencing a syncopal episode earlier this afternoon. She was in the oncologist's office for follow-up of her lymphoma, when she sat up on the exam table felt very weak and lightheaded and quickly passed out. There was some mild shaking after she passed out but this did not appear to be a full- blown seizure. She has had ongoing difficulty with weakness and shortness of breath, recently completed cardiac evaluation including angiogram. She was told that she had mild coronary artery disease but did not require intervention. She is recently been seen by pulmonology and did undergo pulmonary function studies , she is still waiting for those results. She has a known history of paroxysmal atrial fibrillation. Her dose of metoprolol has been doubled within the past several weeks. She does drink alcohol daily and her alcohol level was elevated when evaluated in the emergency department. She denies any symptoms of chest pain or pressure and there is been no evidence of underlying infection. Blood pressure was significantly low when she presented to the emergency department with systolic pressures in the 70s and heart rate has been in the 40s and 50s. Syncopal episode was felt to be likely related to the hypotension and bradycardia with underlying dehydration. Most likely cause of these effects was felt to be secondary to current medications with metoprolol and diltiazem. She was given IV fluids for hydration and placed in the intensive care unit for more close monitoring. Metoprolol and diltiazem were held at the time of admission. Heart rate and blood pressure improved by the following morning she was restarted on the metoprolol at a lower dose 25 mg twice daily and the diltiazem at a lower dose 120 mg daily. Heart rate improved with these changes but she developed significant hypertension from the changes in medication. On discharge lisinopril 10 mg by mouth twice a day will be added to current regimen to hopefully help with blood pressure control. She had no further symptoms of lightheadedness or episodes of syncope during the hospital stay. She was found to have evidence of urinary tract infection, urine culture was obtained and she was treated with IV Rocephin while in the hospital. Final ID and sensitivities from urine culture pending at the time of discharge she will be discharged with trimethoprim sulfamethoxazole double strength 1 by mouth twice a day for an additional 3 days. Activity will be as tolerated and she will resume her usual diet. Follow-up appointment will be scheduled with her primary care provider within one. - Patient Instructions Diet: Heart Healthy Diet Activity: As Tolerated Other/Special Instructions: Patient has follow-up appointment scheduled with primary care provider within one week. - Discharge Plan *PRESCRIPTION DRUG MONITORING PROGRAM REVIEWED*: Not Applicable *COPY OF PRESCRIPTION DRUG MONITORING REPORT IN PATIENT CLYDE: Not Applicable Prescriptions/Med Rec: Diltiazem [Cardizem CD] 120 mg PO DAILY #30 cap.cd Levothyroxine [Synthroid] 100 mcg PO ACBREAKFAST #30 tablet Lisinopril [Prinivil] 10 mg PO BID #60 tablet Metoprolol Succinate [Toprol XL] 25 mg PO BID #60 tab.er Sulfamethoxazole/Trimethoprim [Septra DS] 1 each PO BID #6 tab Home Medications: Home Meds Acetaminophen [Tylenol Extra Strength] 500 mg PO Q6H PRN 03/07/17 [History] Apixaban [Eliquis] 5 mg PO BID 03/07/17 [History] DULoxetine [Cymbalta] 30 mg PO DAILY 03/07/17 [History] DULoxetine [Cymbalta] 60 mg PO DAILY 03/07/17 [History] Fenofibrate 160 mg PO DAILY 03/07/17 [History] Gabapentin [Neurontin] 1,200 mg PO TID 03/07/17 [History] Metoprolol Succinate [Toprol XL] 1 tab PO BID 03/07/17 [History] Diltiazem [Cardizem CD] 120 mg PO DAILY #30 cap.cd 11/22/17 [Rx] Levothyroxine [Synthroid] 100 mcg PO ACBREAKFAST #30 tablet 11/22/17 [Rx] Lisinopril [Prinivil] 10 mg PO BID #60 tablet 11/22/17 [Rx] Metoprolol Succinate [Toprol XL] 25 mg PO BID #60 tab.er 11/22/17 [Rx] Sulfamethoxazole/Trimethoprim [Septra DS] 1 each PO BID #6 tab 11/22/17 [Rx] Referrals: Susana Alfred MD [Physician] - 11/27/17 1:30 pm - Discharge Summary/Plan Comment DC Time >30 min.: No - Patient Data Vitals - Most Recent: Last Vital Signs Temp 98.8 F 11/22/17 07:28 Pulse 80 11/22/17 09:08 Resp 12 11/22/17 07:28 BP 188/86 H 11/22/17 09:08 Pulse Ox 98 11/22/17 07:28 Orthostatic Blood Pressure [ 177/85 Standing] Orthostatic Blood Pressure [ 202/100 Sitting] Orthostatic Blood Pressure [ 190/96 Supine] Weight - Most Recent: 143 lb 4.807 oz I&O - Last 24 hours: Intake & Output 11/21/17 11/22/17 11/22/17 22:59 06:59 14:59 Intake Total 150 Balance 150 Lab Results - Last 24 hrs: Laboratory Results - last 24 hr 11/22/17 Range/Units 04:35 Sodium 138 L (140-148) mmol/L Potassium 3.6 (3.6-5.2) mmol/L Chloride 102 (100-108) mmol/L Carbon Dioxide 29 (21-32) mmol/L Anion Gap 10.6 (5.0-14.0) mmol/L BUN 17 (7-18) mg/dL Creatinine 0.8 (0.6-1.0) mg/dL Est Cr Clr Drug Dosing 51.03 mL/min Estimated GFR (MDRD) > 60 (>60) Glucose 106 (74-106) mg/dL Calcium 9.2 (8.5-10.1) mg/dL POWER Results - Last 24 hrs: Microbiology 11/20/17 20:00 Urine Culture - Preliminary Urine, Clean Catch Med Orders - Current: Current Medications Acetaminophen (Tylenol) 650 mg PO Q4H PRN PRN Reason: Pain (Mild 1-3)/fever Last Admin: 11/20/17 20:34 Dose: 650 mg Apixaban (Eliquis) 5 mg PO BID [facility] Last Admin: 11/22/17 09:07 Dose: 5 mg Diltiazem HCl (Cardizem Cd) 120 mg PO DAILY [facility] Last Admin: 11/22/17 09:08 Dose: 120 mg Duloxetine HCl (Cymbalta) 60 mg PO DAILY [facility] Last Admin: 11/22/17 09:09 Dose: 60 mg Fenofibrate (Fenofibrate) 134 mg PO DAILY [facility] Last Admin: 11/22/17 09:07 Dose: 134 mg Folic Acid (Folic Acid) 1 mg PO DAILY [facility] Last Admin: 11/22/17 09:07 Dose: 1 mg Gabapentin (Neurontin) 600 mg PO TID [facility] Last Admin: 11/22/17 09:07 Dose: 600 mg Hydralazine HCl (Apresoline) 10 mg IVPUSH Q4H PRN PRN Reason: Hypertension Last Admin: 11/22/17 01:32 Dose: 10 mg Ceftriaxone Sodium 1 gm/ (Sodium Chloride) 50 mls @ 100 mls/hr IV Q24H [facility] Last Admin: 11/21/17 21:07 Dose: 100 mls/hr Levothyroxine Sodium (Synthroid) 100 mcg PO ACBREAKFAST [facility] Last Admin: 11/22/17 07:49 Dose: 100 mcg Lisinopril (Prinivil) 10 mg PO BID [facility] Last Admin: 11/22/17 09:08 Dose: 10 mg Lorazepam (Ativan) 0 mg PO ASDIRECTED [facility]; Protocol Last Admin: 11/21/17 23:13 Dose: 1 mg Lorazepam (Ativan) 0 mg IV ASDIRECTED [facility]; Protocol Magnesium Hydroxide (Milk Of Magnesia) 30 ml PO Q12H PRN PRN Reason: Constipation Metoprolol Succinate (Toprol Xl) 25 mg PO BID [facility] Last Admin: 11/22/17 09:08 Dose: 25 mg Ondansetron HCl (Zofran) 4 mg IV Q4H PRN PRN Reason: Nausea/Vomiting Oxycodone HCl (Oxycodone) 5 mg PO Q4H PRN PRN Reason: Pain Last Admin: 11/22/17 09:07 Dose: 5 mg Polyethylene Glycol (Miralax) 17 gm PO DAILY PRN PRN Reason: Constipation Senna/Docusate Sodium (Senna Plus) 1 tab PO BID PRN PRN Reason: Constipation Sodium Chloride (Saline Flush) 10 ml FLUSH ASDIRECTED PRN PRN Reason: Keep Vein Open Thiamine HCl (Vitamin B-1) 100 mg PO DAILY [facility] Last Admin: 11/22/17 09:07 Dose: 100 mg Discontinued Medications Gabapentin (Neurontin) 400 mg PO TID [facility] Last Admin: 11/21/17 08:24 Dose: 400 mg Sodium Chloride (Normal Saline) 1,000 mls @ 500 mls/hr IV ASDIRECTED [facility] Last Admin: 11/20/17 16:32 Dose: 500 mls/hr Sodium Chloride (Normal Saline) 1,000 mls @ 125 mls/hr IV ASDIRECTED [facility] Last Admin: 11/21/17 04:37 Dose: 125 mls/hr Levothyroxine Sodium (Synthroid) 88 mcg PO ACBREAKFAST [facility] Last Admin: 11/21/17 08:25 Dose: 88 mcg Potassium Chloride (Klor-Con M20) 40 meq PO ONETIME ONE Stop: 11/20/17 19:31 Last Admin: 11/20/17 20:31 Dose: 40 meq - Exam Quality Assessment: Reports: DVT Prophylaxis General: Reports: Alert, Oriented, Cooperative, No Acute Distress Lungs: Reports: Clear to Auscultation, Normal Respiratory Effort Cardiovascular: Reports: Regular Rate, Regular Rhythm, No Murmurs GI/Abdominal Exam: Soft, Non-Tender, No Organomegaly, No Distention *Q Meaningful Use (DIS) - VTE *Q VTE Pharmacological Contraindications *Q: High INR Value
== END 2017-11-22 10:40 | disposition home or self-care (01) | DRG 312 ==
LOC: JP.ED 14:29 → JP.ICU 18:35
PROVIDERS: ADMIT Hospitalist; ATTEND Hospitalist
DX: R55 Syncope and collapse (principal); N17.9 Acute kidney failure, unspecified; N39.0 Urinary tract infection, site not specified; T44.7X5A Adverse effect of beta-adrenoreceptor antagonists, initial encounter; T46.1X5A Adverse effect of calcium-channel blockers, initial encounter; Y92.89 Other specified places as the place of occurrence of the external cause; E86.0 Dehydration; R00.1 Bradycardia, unspecified; I95.9 Hypotension, unspecified; I10 Essential (primary) hypertension; Z85.72 Personal history of non-Hodgkin lymphomas; F10.20 Alcohol dependence, uncomplicated; Y90.3 Blood alcohol level of 60-79 mg/100 ml; I48.0 Paroxysmal atrial fibrillation; Z79.01 Long term (current) use of anticoagulants; E03.9 Hypothyroidism, unspecified; Z87.891 Personal history of nicotine dependence; I25.10 Atherosclerotic heart disease of native coronary artery without angina pectoris; M19.90 Unspecified osteoarthritis, unspecified site; Z88.1 Allergy status to other antibiotic agents; Z88.8 Allergy status to other drugs, medicaments and biological substances; Z91.048 Other nonmedicinal substance allergy status; B96.20 Unspecified Escherichia coli [E. coli] as the cause of diseases classified elsewhere
CPT/HCPCS: 36415; 70450; 80053; 84443; 84484; 85025; 93005; 96360; 99285; G0480; J7030; 80048; 81001; 82962; 84439; 84481; 87086; 87088; 87186; 97110-GP; 97162-GP; 97530-GP; A9270-GY; J0360; J0696; J7050

== ENCOUNTER 2018-08-21 07:15 | Emergency (ER) | payer MEDICARE, BC ==
[2018-08-21] MEDS ORDERED: Sodium Chloride 0.9% 1,000 ML IV SCH ×2 (07:30→09:15)
[2018-08-21] MEDS ORDERED: Ondansetron 4 MG/2 ML SDV IVPUSH ONE (07:35)
--- NOTE | 2018-08-21 07:35 | EDM.PDOC ---
ED HPI GENERAL MEDICAL PROBLEM - General Chief Complaint: General Stated Complaint: MEDICAL VIA [facility] Time Seen by Provider: 08/21/18 07:35 Source of Information: Reports: Patient History Limitations: Reports: No Limitations - History of Present Illness INITIAL COMMENTS - FREE TEXT/NARRATIVE: pt has been having severe neck pain for about 3 weeks. She has a history of several extruded discs. She started vomiting about 2 days ago. She has not been able to keep anything down. She has not been getting her meds down. She has not had severe abdomanal pain. She was very weak this am and was bearly able to walk. Duration: Hour(s): Location: Reports: Neck, Abdomen, Generalized Associated Symptoms: Reports: Nausea/Vomiting, Weakness Treatments DIRECTOR ASSET: Reports: IV/IO - Related Data Allergies Allergy/AdvReac Type Severity Reaction Status Date / Time adhesive tape Allergy Itching Verified 02/18/18 01:56 minocycline Allergy Rash Verified 02/18/18 01:56 rituximab Allergy Itching Verified 02/18/18 01:56 tetracycline Allergy Rash Verified 02/18/18 01:56 Home Meds: Home Meds Acetaminophen [Tylenol Extra Strength] 500 mg PO Q6H PRN 03/07/17 [History] Apixaban [Eliquis] 5 mg PO BID 03/07/17 [History] DULoxetine [Cymbalta] 30 mg PO DAILY 03/07/17 [History] DULoxetine [Cymbalta] 60 mg PO DAILY 03/07/17 [History] Fenofibrate 160 mg PO DAILY 03/07/17 [History] Gabapentin [Neurontin] 1,200 mg PO TID 03/07/17 [History] Metoprolol Succinate [Toprol XL] 1 tab PO BID 03/07/17 [History] Diltiazem [Cardizem CD] 120 mg PO DAILY #30 cap.cd 11/22/17 [Rx] Levothyroxine [Synthroid] 100 mcg PO ACBREAKFAST #30 tablet 11/22/17 [Rx] Metoprolol Succinate [Toprol XL] 25 mg PO BID #60 tab.er 11/22/17 [Rx] Albuterol [Ventolin HFA] 1 - 2 inh INH ASDIRECTED PRN 02/18/18 [History] Levofloxacin 500 mg PO DAILY 02/18/18 [History] Lisinopril [Prinivil] 40 mg PO DAILY 02/18/18 [History] Past Medical History HEENT History: Reports: Cataract Cardiovascular History: Reports: Afib, CAD, High Cholesterol, Hypertension Other Cardiovascular History: paroxysmal a- fib Respiratory History: Reports: SOB, Other (See Below) Other Respiratory History: breathing function test Gastrointestinal History: Reports: Other (See Below) Other Gastrointestinal History: prolapsed rectum THERAPIST RADIATION History: Reports: Fibroids, Musculoskeletal History: Reports: Arthritis Other Musculoskeletal History: degenerative disc cervical Neurological History: Reports: Neuropathy, Peripheral, Other (See Below) Other Neuro History: tremor Psychiatric History: Reports: Addiction, Depression Endocrine/Metabolic History: Reports: Hypothyroidism Hematologic History: Reports: Other (See Below) Other Hematologic History: lymphoma Oncologic (Cancer) History: Reports: Breast, Lymphoma Other Oncologic History: left breast Dermatologic History: Reports: Other (See Below) Other Dermatologic History: pruritus - Infectious Disease History Infectious Disease History: Reports: Chicken Pox, Measles, Shingles - Past Surgical History HEENT Surgical History: Reports: Cataract Surgery Cardiovascular Surgical History: Reports: Percutaneous Transluminal Angioplasty GI Surgical History: Reports: Appendectomy, Colonoscopy, Other (See Below) Other GI Surgeries/Procedures: rectum fixed with mesh Female Surgical History: Reports: Hysterectomy, Salpingo-Oophorectomy Oncologic Surgical History: Reports: Biopsy of Breast Social & Family History - Family History Family Medical History: Noncontributory - Caffeine Use Caffeine Use: Reports: Soda Other Caffeine Use: seldom ED ROS GENERAL - Review of Systems Review Of Systems: See Below Constitutional: Reports: Malaise, Weakness, Decreased Appetite HEENT: Reports: Other (pt has had a sore throat) Respiratory: Reports: No Symptoms Cardiovascular: Reports: No Symptoms Endocrine: Reports: No Symptoms GI/Abdominal: Reports: Diarrhea, Nausea, Vomiting : Reports: No Symptoms Musculoskeletal: Reports: No Symptoms, Other (pt has a history of alot of neck pain. ) Neurological: Reports: No Symptoms, Other (pt is withdrawing from etoh and she is quite shakey) Psychiatric: Reports: No Symptoms ED EXAM, GENERAL - Physical Exam Exam: See Below Free Text/Narrative:: Pt arrived with a history of vomiting everything for the past 3 days. She is quite dehydrated with a k of 3,1. She was given 20 meq k and she was given 2 liters of fluid. She is feeling shakey and she was given ativan .5 mg iv. She definitely is doing some withdrawing,. Exam Limited By: No Limitations General Appearance: Alert, Anxious, Moderate Distress, Other (pupils equal and reactive. ) Ears: Normal TMs Nose: Normal Inspection Throat/Mouth: Normal Inspection Head: Atraumatic Neck: Normal Inspection Respiratory/Chest: No Respiratory Distress Cardiovascular: Regular Rate, Rhythm GI/Abdominal: Soft, Other (mild tenderness. ) (Female) Exam: Deferred Rectal (Female) Exam: Deferred Back Exam: Normal Inspection Extremities: Normal Inspection Neurological: Alert, Oriented, Normal Cognition, Other ( very shakey and withdrawing. ) Psychiatric: Normal Affect Course - Vital Signs Last Recorded V/S: Last Vital Signs Temp 35.8 C 08/21/18 07:24 Pulse 87 08/21/18 09:56 Resp 18 08/21/18 07:24 BP 186/100 H 08/21/18 09:56 Pulse Ox 98 08/21/18 07:24 - Orders/Labs/Meds Orders: Active Orders 24 hr Category Date Time Status CULTURE STREP A CONFIRMATION [] Stat Lab 08/21/18 07:57 Results STREP SCRN A RAPID W CULT CONF [] Stat Lab 08/21/18 07:57 Results Potassium Chloride 20 meq Med 08/21/18 09:45 Active Lidocaine 1% [Xylocaine 1%] 2 ml Sodium Chloride 0.9% [Normal Saline] 100 ml IV ONETIME Sodium Chloride 0.9% [Normal Saline] 1,000 ml Med 08/21/18 07:30 Active IV ASDIRECTED Sodium Chloride 0.9% [Normal Saline] 1,000 ml Med 08/21/18 09:15 Active IV ASDIRECTED Medication Orders Sodium Chloride (Normal Saline) 1,000 mls @ 999 mls/hr IV ASDIRECTED NICOLA Last Admin: 08/21/18 09:57 Dose: 999 mls/hr Sodium Chloride (Normal Saline) 1,000 mls @ 999 mls/hr IV ASDIRECTED NICOLA Last Admin: 08/21/18 11:11 Dose: 999 mls/hr Potassium Chloride 20 meq/Lidocaine HCl 2 ml/ Sodium Chloride 112 mls @ 56 mls/ hr IV ONETIME ONE Stop: 08/21/18 11:44 Last Admin: 08/21/18 09:57 Dose: 56 mls/hr Labs: Laboratory Tests 08/21/18 08/21/18 08/21/18 Range/Units 07:27 07:50 07:50 WBC 7.3 (4.5-11.0) K/uL RBC 4.98 (3.30-5.50) M/uL Hgb 15.4 H D (12.0-15.0) g/dL Hct 45.6 (36.0-48.0) % MCV 92 (80-98) fL MCH 31 (27-31) pg MCHC 34 (32-36) % Plt Count 243 (150-400) K/uL Neut % (Auto) 76 H (36-66) % Lymph % (Auto) 8 L (24-44) % Harris % (Auto) 14 H (2-6) % Eos % (Auto) 1 L (2-4) % Baso % (Auto) 1 (0-1) % Sodium 141 (140-148) mmol/L Potassium 3.1 L (3.6-5.2) mmol/L Chloride 103 (100-108) mmol/L Carbon Dioxide 22 (21-32) mmol/L Anion Gap 19.1 H (5.0-14.0) mmol/L BUN 14 (7-18) mg/dL Creatinine 0.9 (0.6-1.0) mg/dL Est Cr Clr Drug Dosing 45.36 mL/min Estimated GFR (MDRD) > 60 (>60) Glucose 183 H (74-106) mg/dL Calcium 9.4 (8.5-10.1) mg/dL Total Bilirubin 1.1 H D (0.2-1.0) mg/dL AST 38 H (15-37) U/L ALT 49 (12-78) U/L Alkaline Phosphatase 40 L (46-116) U/L Total Protein 7.3 (6.4-8.2) g/dL Albumin 3.9 (3.4-5.0) g/dL Globulin 3.4 (2.3-3.5) g/dL Albumin/Globulin Ratio 1.1 L (1.2-2.2) Lipase (73-393) U/L Urine Color Yellow Urine Appearance Clear Urine pH 8.0 (4.5-8.0) Ur Specific Anderson 1.005 L (1.008-1.030) Urine Protein Negative (NEGATIVE) mg/dL Urine Glucose (UA) 250 H (NEGATIVE) mg/dL Urine Ketones 15 H (NEGATIVE) mg/dL Urine Occult Blood Negative (NEGATIVE) Urine Nitrite Negative (NEGATIVE) Urine Bilirubin Negative (NEGATIVE) Urine Urobilinogen Normal (NORMAL) mg/dL Ur Leukocyte Esterase Negative (NEGATIVE) Urine RBC 0-5 (0-5) Urine WBC 0-5 (0-5) Ur Epithelial Cells Not seen Amorphous Sediment Rare Urine Bacteria Not seen Urine Mucus Not seen Ethyl Alcohol mg/dL 08/21/18 08/21/18 Range/Units 08:28 08:41 WBC (4.5-11.0) K/uL RBC (3.30-5.50) M/uL Hgb (12.0-15.0) g/dL Hct (36.0-48.0) % MCV (80-98) fL MCH (27-31) pg MCHC (32-36) % Plt Count (150-400) K/uL Neut % (Auto) (36-66) % Lymph % (Auto) (24-44) % Harris % (Auto) (2-6) % Eos % (Auto) (2-4) % Baso % (Auto) (0-1) % Sodium (140-148) mmol/L Potassium (3.6-5.2) mmol/L Chloride (100-108) mmol/L Carbon Dioxide (21-32) mmol/L Anion Gap (5.0-14.0) mmol/L BUN (7-18) mg/dL Creatinine (0.6-1.0) mg/dL Est Cr Clr Drug Dosing mL/min Estimated GFR (MDRD) (>60) Glucose (74-106) mg/dL Calcium (8.5-10.1) mg/dL Total Bilirubin (0.2-1.0) mg/dL AST (15-37) U/L ALT (12-78) U/L Alkaline Phosphatase (46-116) U/L Total Protein (6.4-8.2) g/dL Albumin (3.4-5.0) g/dL Globulin (2.3-3.5) g/dL Albumin/Globulin Ratio (1.2-2.2) Lipase 190 (73-393) U/L Urine Color Urine Appearance Urine pH (4.5-8.0) Ur Specific Anderson (1.008-1.030) Urine Protein (NEGATIVE) mg/dL Urine Glucose (UA) (NEGATIVE) mg/dL Urine Ketones (NEGATIVE) mg/dL Urine Occult Blood (NEGATIVE) Urine Nitrite (NEGATIVE) Urine Bilirubin (NEGATIVE) Urine Urobilinogen (NORMAL) mg/dL Ur Leukocyte Esterase (NEGATIVE) Urine RBC (0-5) Urine WBC (0-5) Ur Epithelial Cells Amorphous Sediment Urine Bacteria Urine Mucus Ethyl Alcohol < 3 mg/dL Meds: Medications Generic Name Dose Route Start Last Admin Trade Name Freraheem PRN Reason Stop Dose Admin Sodium Chloride 1,000 mls @ 999 mls/hr 08/21/18 07:30 08/21/18 09:57 Normal Saline IV 999 mls/hr ASDIRECTED NICOLA Administration Sodium Chloride 1,000 mls @ 999 mls/hr 08/21/18 09:15 08/21/18 11:11 Normal Saline IV 999 mls/hr ASDIRECTED NICOLA Administration Potassium Chloride 20 meq/ 112 mls @ 56 mls/hr 08/21/18 09:45 08/21/18 09:57 Lidocaine HCl 2 ml/ Sodium IV 08/21/18 11:44 56 mls/hr Chloride ONETIME ONE Administration Discontinued Medications Generic Name Dose Route Start Last Admin Trade Name Bailey PRN Reason Stop Dose Admin Lisinopril 20 mg 08/21/18 11:05 Prinivil PO 08/21/18 11:06 ONETIME ONE Lorazepam 0.5 mg 08/21/18 11:01 Ativan IVPUSH 08/21/18 11:02 ONETIME ONE Metoprolol Tartrate 25 mg 08/21/18 08:27 08/21/18 09:56 Lopressor PO 08/21/18 08:28 25 mg ONETIME ONE Administration Ondansetron HCl 4 mg 08/21/18 07:35 08/21/18 09:56 Zofran IVPUSH 08/21/18 07:36 4 mg ONETIME ONE Administration - Re-Assessments/Exams Free Text/Narrative Re-Assessment/Exam: 08/21/18 11:43 pt had a neg strept, her electrolytes showed hypokalemia, she was given 2 liters of fluid. Pt was given potassium 20 meq. 08/21/18 11:44 Departure - Departure Time of Disposition: 11:31 Disposition: Home, Self-Care 01 Condition: Fair Clinical Impression: Dehydration, Gastroenteritis, Alcohol withdrawal - Discharge Information Referrals: Susana Alfred MD [Primary Care Provider] - Forms: ED Department Discharge Care Plan Goals: clear liquids today and advance diet as tolerated, zoforan 4 mg q6h prn for nausea, ativan 1mg 1/2 to 1 tab q6h prn for shakiness and withdrawal, eat high k foods. - My Orders Last 24 Hours: My Active Orders 08/21/18 07:30 Sodium Chloride 0.9% [Normal Saline] 1,000 ml IV ASDIRECTED 08/21/18 07:57 CULTURE STREP A CONFIRMATION [RM] Stat STREP SCRN A RAPID W CULT CONF [RM] Stat 08/21/18 09:15 Sodium Chloride 0.9% [Normal Saline] 1,000 ml IV ASDIRECTED 08/21/18 09:45 Potassium Chloride 20 meq Lidocaine 1% [Xylocaine 1%] 2 ml Sodium Chloride 0.9 % [Normal Saline] 100 ml IV ONETIME - Assessment/Plan Last 24 Hours: My Active Orders 08/21/18 07:30 Sodium Chloride 0.9% [Normal Saline] 1,000 ml IV ASDIRECTED 08/21/18 07:57 CULTURE STREP A CONFIRMATION [RM] Stat STREP SCRN A RAPID W CULT CONF [RM] Stat 08/21/18 09:15 Sodium Chloride 0.9% [Normal Saline] 1,000 ml IV ASDIRECTED 08/21/18 09:45 Potassium Chloride 20 meq Lidocaine 1% [Xylocaine 1%] 2 ml Sodium Chloride 0.9 % [Normal Saline] 100 ml IV ONETIME
[2018-08-21] MEDS ORDERED: Metoprolol Tartrate 25 MG Tab PO ONE (08:27)
[2018-08-21] MEDS ORDERED: Potassium Chloride 20 MEQ in Premix Bag 1 BAG IV ONE (08:29)
[2018-08-21] MEDS ORDERED: Potassium Chloride 20 MEQ, Lidocaine 1% 2 ML in Sodium Chloride 0.9% 100 ML IV ONE (09:45)
[2018-08-21] MEDS ORDERED: LORazepam 2 MG/ML SDV IVPUSH ONE (11:01)
[2018-08-21] MEDS ORDERED: Lisinopril 10 MG Tab PO ONE (11:05)
== END 2018-08-21 12:07 | disposition home or self-care (01) ==
LOC: JP.ED 07:15
DX: K52.9 Noninfective gastroenteritis and colitis, unspecified (principal); F10.239 Alcohol dependence with withdrawal, unspecified; Y90.0 Blood alcohol level of less than 20 mg/100 ml; I10 Essential (primary) hypertension; E78.00 Pure hypercholesterolemia, unspecified; I48.91 Unspecified atrial fibrillation; I25.10 Atherosclerotic heart disease of native coronary artery without angina pectoris; E03.9 Hypothyroidism, unspecified; Z79.899 Other long term (current) drug therapy; Z91.09 Other allergy status, other than to drugs and biological substances; Z88.1 Allergy status to other antibiotic agents; Z88.8 Allergy status to other drugs, medicaments and biological substances
CPT/HCPCS: 36415; 80053; 81001; 83690; 85025; 87081; 87430; 96365; 96366; 96375; 99283; A9270; G0480; J2001; J2060; J2405; J3480; J7030; 99284

== ENCOUNTER 2018-11-30 15:49 | Emergency (ER) | payer MEDICARE, BC ==
[2018-11-30] MEDS ORDERED: HYDROmorphone 1 MG/ML Syringe IM ONE (15:51)
--- NOTE | 2018-11-30 15:56 | EDM.PDOC ---
ED HPI GENERAL MEDICAL PROBLEM - General Chief Complaint: Lower Extremity Injury/Pain Stated Complaint: FALL RI ANKLE Time Seen by Provider: 11/30/18 15:50 Source of Information: Reports: Patient, EMS, Old Records History Limitations: Reports: No Limitations - History of Present Illness INITIAL COMMENTS - FREE TEXT/NARRATIVE: 73 yo female presents with R ankle pain and swelling from her home after slipping on her floor at home about 0300h last night. Was able to go back to bed and sleep after the injury. Later when she awoke was not able to bare weight. Here via EMS after receiving fentanyl 100 mcg IM. EMS splinted her before arrival. Onset: Today Onset Date: 11/30/18 Onset Time: 03:00 Duration: Hour(s):, Constant Location: Reports: Lower Extremity, Left Quality: Reports: Ache (at rest), Sharp (with movement) Severity: Severe (with movement or bumping) Improves with: Reports: Immobilization, Medication, Rest Worsens with: Reports: Movement Context: Reports: Trauma Associated Symptoms: Reports: No Other Symptoms Treatments LIQUOR RECTIFIER: Reports: Other (see below) (fentanyl 100 mcg IM) Right Ankle Pain Score (Numeric/FACES): 10 - Related Data Allergies Allergy/AdvReac Type Severity Reaction Status Date / Time adhesive tape Allergy Itching Verified 02/18/18 01:56 minocycline Allergy Rash Verified 02/18/18 01:56 rituximab Allergy Itching Verified 02/18/18 01:56 tetracycline Allergy Rash Verified 02/18/18 01:56 Home Meds: Home Meds Acetaminophen [Tylenol Extra Strength] 500 mg PO Q6H PRN 03/07/17 [History] Apixaban [Eliquis] 5 mg PO BID 03/07/17 [History] DULoxetine [Cymbalta] 30 mg PO DAILY 03/07/17 [History] DULoxetine [Cymbalta] 60 mg PO DAILY 03/07/17 [History] Fenofibrate 160 mg PO DAILY 03/07/17 [History] Gabapentin [Neurontin] 900 mg PO TID 03/07/17 [History] Metoprolol Succinate [Toprol XL] 1 tab PO BID 03/07/17 [History] Diltiazem [Cardizem CD] 120 mg PO DAILY #30 cap.cd 11/22/17 [Rx] Levothyroxine [Synthroid] 100 mcg PO ACBREAKFAST #30 tablet 11/22/17 [Rx] Albuterol [Ventolin HFA] 1 - 2 inh INH ASDIRECTED PRN 02/18/18 [History] Lisinopril [Prinivil] 40 mg PO DAILY 02/18/18 [History] Acetaminophen/HYDROcodone [[place] 325-5 MG] 1 - 2 tab PO Q6H PRN #24 tab [Rx] Metoprolol Succinate [Toprol XL] 100 mg PO BID 11/30/18 [History] Ondansetron [Zofran ODT] 4 mg PO Q6H #7 tab.dis 11/30/18 [Rx] Past Medical History HEENT History: Reports: Cataract Cardiovascular History: Reports: Afib, CAD, High Cholesterol, Hypertension Other Cardiovascular History: paroxysmal a- fib Respiratory History: Reports: SOB, Other (See Below) Other Respiratory History: breathing function test Gastrointestinal History: Reports: Other (See Below) Other Gastrointestinal History: prolapsed rectum DIRECTOR CHECK History: Reports: Fibroids, Musculoskeletal History: Reports: Arthritis Other Musculoskeletal History: degenerative disc cervical Neurological History: Reports: Neuropathy, Peripheral, Other (See Below) Other Neuro History: tremor Psychiatric History: Reports: Addiction, Depression Endocrine/Metabolic History: Reports: Hypothyroidism Hematologic History: Reports: Other (See Below) Other Hematologic History: lymphoma Oncologic (Cancer) History: Reports: Breast, Lymphoma Other Oncologic History: left breast Dermatologic History: Reports: Other (See Below) Other Dermatologic History: pruritus - Infectious Disease History Infectious Disease History: Reports: Chicken Pox, Measles, Shingles - Past Surgical History HEENT Surgical History: Reports: Cataract Surgery Cardiovascular Surgical History: Reports: Percutaneous Transluminal Angioplasty GI Surgical History: Reports: Appendectomy, Colonoscopy, Other (See Below) Other GI Surgeries/Procedures: rectum fixed with mesh Female Surgical History: Reports: Hysterectomy, Salpingo-Oophorectomy Oncologic Surgical History: Reports: Biopsy of Breast Social & Family History - Family History Family Medical History: Noncontributory - Caffeine Use Caffeine Use: Reports: Soda Other Caffeine Use: seldom Review of Systems - Review of Systems Review Of Systems: See Below Constitutional: Reports: No Symptoms Musculoskeletal: Reports: Joint Pain (R ankle), Joint Swelling (R ankle) Skin: Reports: No Symptoms Neurological: Reports: No Symptoms ED EXAM, GENERAL - Physical Exam Exam: See Below Exam Limited By: No Limitations General Appearance: Alert, WD/WN, No Apparent Distress Peripheral Pulses: 2+: Popliteal (R), Posterior Tibial (R), Dorsalis Pedis (R) Extremities: Pedal Edema (R ankle swollen medially and laterally), Joint Swelling (R ankle), Leg Pain (R ankle), Limited Range of Motion (R ankle due to pain.). No: Normal Inspection, Normal Range of Motion, Non-Tender, No Pedal Edema, Increased Warmth, Redness Neurological: Alert, Oriented, CN II-XII Intact, Normal Cognition, No Motor/ Sensory Deficits Psychiatric: Normal Affect, Normal Mood Skin Exam: Warm, Dry, Intact, Normal Color, No Rash Course - Vital Signs Text/Narrative:: Dr. Cobian called @ 1610h, here to see and splint patient. Last Recorded V/S: Last Vital Signs Temp 36.8 C 11/30/18 16:04 Pulse 71 11/30/18 16:04 Resp 16 11/30/18 16:04 BP 164/97 H 11/30/18 16:04 Pulse Ox 94 L 11/30/18 16:04 - Orders/Labs/Meds Meds: Medications Discontinued Medications Generic Name Dose Route Start Last Admin Trade Name Freq PRN Reason Stop Dose Admin Hydromorphone HCl 1 mg 11/30/18 15:51 11/30/18 15:56 Dilaudid IM 11/30/18 15:52 1 mg ONETIME ONE Administration Ondansetron HCl 4 mg 11/30/18 18:04 11/30/18 18:05 Zofran Odt PO 11/30/18 18:05 4 mg ONETIME ONE Administration - Radiology Interpretation Free Text/Narrative:: R ankle [id number] ankle fx Departure - Departure Time of Disposition: 18:15 Disposition: Home, Self-Care 01 Condition: Fair Clinical Impression: Bimalleolar fracture of right ankle Qualifiers: Encounter type: initial encounter Fracture type: closed Qualified Code(s): S82.841A - Displaced bimalleolar fracture of right lower leg, initial encounter for closed fracture - Discharge Information *PRESCRIPTION DRUG MONITORING PROGRAM REVIEWED*: No *COPY OF PRESCRIPTION DRUG MONITORING REPORT IN PATIENT CLYDE: No Prescriptions: Acetaminophen/HYDROcodone [[place] 325-5 MG] 1 - 2 tab PO Q6H PRN #24 tab PRN Reason: Pain Ondansetron [Zofran ODT] 4 mg PO Q6H #7 tab.dis Instructions: Tibial and Fibular Fractures Referrals: PCP,None [Primary Care Provider] - Forms: ED Department Discharge Additional Instructions: Keep ankle elevated above the heart. No weight bearing. Wear your splint at all times. See Dr. Cobian in a week in his clinic. Take ibuprofen 400 mg every 6- 8 hrs with food for pain relief. Add [place] for added pain relief. Try getting a knee walker to help you get around.
--- NOTE | 2018-11-30 17:36 | CRLCR ---
Indication: Right ankle pain. Technique: Three views of the right ankle were obtained. Comparison: None Findings: A fracture of the distal fibula is identified. The ankle mortise is intact. The talar dome is intact. Fracture of the medial malleolus is identified. A fracture of both the anterior and posterior aspect of the distal tibia are also identified. Impression: Distal tibial and fibular fractures Dictated by Cat Robertson MD @ Nov 30 2018 5:23PM Signed by Dr. Cat Robertson @ Nov 30 2018 5:33PM
[2018-11-30] MEDS ORDERED: Ondansetron 4 MG Tab.DIS PO ONE (18:04)
== END 2018-11-30 19:00 | disposition home or self-care (01) ==
LOC: JP.ED 15:49
DX: S82.841A Displaced bimalleolar fracture of right lower leg, initial encounter for closed fracture (principal); I10 Essential (primary) hypertension; I48.0 Paroxysmal atrial fibrillation; I25.10 Atherosclerotic heart disease of native coronary artery without angina pectoris; M19.90 Unspecified osteoarthritis, unspecified site; F41.9 Anxiety disorder, unspecified; F32.9 Major depressive disorder, single episode, unspecified; E03.9 Hypothyroidism, unspecified; Z88.8 Allergy status to other drugs, medicaments and biological substances; Z88.1 Allergy status to other antibiotic agents; Z91.048 Other nonmedicinal substance allergy status; Z79.899 Other long term (current) drug therapy; W01.0XXA Fall on same level from slipping, tripping and stumbling without subsequent striking against object, initial encounter
CPT/HCPCS: 73610; 96372; 99283; A9270; J1170

== ENCOUNTER 2018-12-03 11:02 | Emergency (ER) | payer MEDICARE, BC ==
--- NOTE | 2018-12-03 12:03 | EDM.PDOC ---
ED HPI GENERAL MEDICAL PROBLEM - General Chief Complaint: General Stated Complaint: DELUSIONAL Time Seen by Provider: 12/03/18 11:53 Source of Information: Reports: Patient, Family, RN Notes Reviewed History Limitations: Reports: No Limitations - History of Present Illness INITIAL COMMENTS - FREE TEXT/NARRATIVE: 73-year-old female presents emergency department today complaint of delusions and hallucinations, she states she's been having hallucinations for several months now she's noticed they've gotten particularly worse over the last couple days she is mainly been seeing people in the room that aren't there. Also been having memory issues she admits to consuming alcohol recently broke her ankle couple days ago was treated with pain medication of narcotics this may have exacerbated the problem. Alcohol consumption is several drinks of geri per night - Related Data Allergies Allergy/AdvReac Type Severity Reaction Status Date / Time adhesive tape Allergy Itching Verified 12/03/18 11:25 minocycline Allergy Rash Verified 12/03/18 11:25 rituximab Allergy Itching Verified 12/03/18 11:25 tetracycline Allergy Rash Verified 12/03/18 11:25 Home Meds: Home Meds Acetaminophen [Tylenol Extra Strength] 500 mg PO Q6H PRN 03/07/17 [History] Apixaban [Eliquis] 5 mg PO BID 03/07/17 [History] DULoxetine [Cymbalta] 30 mg PO DAILY 03/07/17 [History] DULoxetine [Cymbalta] 60 mg PO DAILY 03/07/17 [History] Fenofibrate 160 mg PO DAILY 03/07/17 [History] Gabapentin [Neurontin] 900 mg PO TID 03/07/17 [History] Diltiazem [Cardizem CD] 120 mg PO DAILY #30 cap.cd 11/22/17 [Rx] Levothyroxine [Synthroid] 100 mcg PO ACBREAKFAST #30 tablet 11/22/17 [Rx] Albuterol [Ventolin HFA] 1 - 2 inh INH ASDIRECTED PRN 02/18/18 [History] Lisinopril [Prinivil] 40 mg PO DAILY 02/18/18 [History] Acetaminophen/HYDROcodone [[place] 325-5 MG] 1 - 2 tab PO Q6H PRN #24 tab [Rx] Metoprolol Succinate [Toprol XL] 100 mg PO BID 11/30/18 [History] Ondansetron [Zofran ODT] 4 mg PO Q6H #7 tab.dis 11/30/18 [Rx] Past Medical History HEENT History: Reports: Cataract Cardiovascular History: Reports: Afib, CAD, High Cholesterol, Hypertension Other Cardiovascular History: paroxysmal a- fib Respiratory History: Reports: SOB, Other (See Below) Other Respiratory History: breathing function test Gastrointestinal History: Reports: Other (See Below) Other Gastrointestinal History: prolapsed rectum 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, Musculoskeletal History: Reports: Arthritis Other Musculoskeletal History: degenerative disc cervical Neurological History: Reports: Neuropathy, Peripheral, Other (See Below) Other Neuro History: tremor Psychiatric History: Reports: Addiction, Depression, Hallucinations Endocrine/Metabolic History: Reports: Hypothyroidism Hematologic History: Reports: Other (See Below) Other Hematologic History: lymphoma Oncologic (Cancer) History: Reports: Breast, Lymphoma Other Oncologic History: left breast Dermatologic History: Reports: Other (See Below) Other Dermatologic History: pruritus - Infectious Disease History Infectious Disease History: Reports: Chicken Pox, Measles, Shingles - Past Surgical History Head Surgeries/Procedures: Reports: None HEENT Surgical History: Reports: Cataract Surgery Cardiovascular Surgical History: Reports: Percutaneous Transluminal Angioplasty Respiratory Surgical History: Reports: None GI Surgical History: Reports: Appendectomy, Colonoscopy, Other (See Below) Other GI Surgeries/Procedures: rectum fixed with mesh Female Surgical History: Reports: Hysterectomy, Salpingo-Oophorectomy Endocrine Surgical History: Reports: None Neurological Surgical History: Reports: None Oncologic Surgical History: Reports: Biopsy of Breast Dermatological Surgical History: Reports: None Social & Family History - Family History Family Medical History: Noncontributory - Tobacco Use Smoking Status *Q: Former Smoker Used Tobacco, but Quit: Yes Month/Year Tobacco Last Used: 1987 Second Hand Smoke Exposure: No - Caffeine Use Caffeine Use: Reports: Coffee, Soda Other Caffeine Use: seldom - Alcohol Use Days Per Week of Alcohol Use: 7 Number of Drinks Per Day: 4 Total Drinks Per Week: 28 - Recreational Drug Use Recreational Drug Use: No ED ROS GENERAL - Review of Systems Review Of Systems: See Below Constitutional: Reports: No Symptoms HEENT: Reports: No Symptoms Respiratory: Reports: No Symptoms Cardiovascular: Reports: No Symptoms GI/Abdominal: Reports: No Symptoms : Reports: No Symptoms Neurological: Reports: Confusion Psychiatric: Reports: Hallucinations ED EXAM, GENERAL - Physical Exam Exam: See Below Exam Limited By: No Limitations General Appearance: Alert, WD/WN, No Apparent Distress Respiratory/Chest: No Respiratory Distress, Lungs Clear, Normal Breath Sounds, No Accessory Muscle Use, Chest Non-Tender Cardiovascular: Regular Rate, Rhythm, No Murmur GI/Abdominal: Soft, Non-Tender Neurological: Alert, Normal Cognition, Memory Loss Recent Events Psychiatric: Other (Visual hallucinations) Course - Vital Signs Last Recorded V/S: Last Vital Signs Temp 98.1 F 12/03/18 11:19 Pulse 90 12/03/18 11:19 Resp 13 12/03/18 11:19 BP 168/90 H 12/03/18 11:19 Pulse Ox 91 L 12/03/18 11:19 - Orders/Labs/Meds Orders: Active Orders 24 hr Category Date Time Status DRUG SCREEN, URINE [URCHEM] Stat Lab 12/03/18 12:09 Ordered UA W/MICROSCOPIC [URIN] Urgent Lab 12/03/18 12:09 Ordered Labs: Laboratory Tests 12/03/18 12/03/18 12/03/18 Range/Units 12:25 12:25 12:25 WBC 6.7 (4.5-11.0) K/uL RBC 3.93 (3.30-5.50) M/uL Hgb 12.3 D (12.0-15.0) g/dL Hct 37.2 (36.0-48.0) % MCV 95 (80-98) fL MCH 31 (27-31) pg MCHC 33 (32-36) % Plt Count 269 (150-400) K/uL Neut % (Auto) 66 (36-66) % Lymph % (Auto) 10 L (24-44) % Brooks % (Auto) 21 H (2-6) % Eos % (Auto) 3 (2-4) % Baso % (Auto) 0 (0-1) % PT (9.5-12.0) sec INR (0.80-1.20) Sodium 137 L (140-148) mmol/L Potassium 3.0 L (3.6-5.2) mmol/L Chloride 99 L (100-108) mmol/L Carbon Dioxide 28 (21-32) mmol/L Anion Gap 13.0 (5.0-14.0) mmol/L BUN 17 (7-18) mg/dL Creatinine 0.9 (0.6-1.0) mg/dL Est Cr Clr Drug Dosing 45.66 mL/min Estimated GFR (MDRD) > 60 (>60) Glucose 132 H (74-106) mg/dL Lactic Acid (0.4-2.0) mmol/L Calcium 9.5 (8.5-10.1) mg/dL Magnesium (1.8-2.4) mg/dL Total Bilirubin 0.6 (0.2-1.0) mg/dL AST 32 (15-37) U/L ALT 31 (12-78) U/L Alkaline Phosphatase 45 L (46-116) U/L Total Protein 6.7 (6.4-8.2) g/dL Albumin 3.6 (3.4-5.0) g/dL Globulin 3.1 (2.3-3.5) g/dL Albumin/Globulin Ratio 1.2 (1.2-2.2) TSH, Ultra Sensitive 2.042 (0.358-3.740) uIU/mL 12/03/18 12/03/18 12/03/18 Range/Units 12:25 12:25 12:25 WBC (4.5-11.0) K/uL RBC (3.30-5.50) M/uL Hgb (12.0-15.0) g/dL Hct (36.0-48.0) % MCV (80-98) fL MCH (27-31) pg MCHC (32-36) % Plt Count (150-400) K/uL Neut % (Auto) (36-66) % Lymph % (Auto) (24-44) % Brooks % (Auto) (2-6) % Eos % (Auto) (2-4) % Baso % (Auto) (0-1) % PT 12.2 H (9.5-12.0) sec INR 1.14 (0.80-1.20) Sodium (140-148) mmol/L Potassium (3.6-5.2) mmol/L Chloride (100-108) mmol/L Carbon Dioxide (21-32) mmol/L Anion Gap (5.0-14.0) mmol/L BUN (7-18) mg/dL Creatinine (0.6-1.0) mg/dL Est Cr Clr Drug Dosing mL/min Estimated GFR (MDRD) (>60) Glucose (74-106) mg/dL Lactic Acid 1.1 (0.4-2.0) mmol/L Calcium (8.5-10.1) mg/dL Magnesium 1.6 L (1.8-2.4) mg/dL Total Bilirubin (0.2-1.0) mg/dL AST (15-37) U/L ALT (12-78) U/L Alkaline Phosphatase (46-116) U/L Total Protein (6.4-8.2) g/dL Albumin (3.4-5.0) g/dL Globulin (2.3-3.5) g/dL Albumin/Globulin Ratio (1.2-2.2) TSH, Ultra Sensitive (0.358-3.740) uIU/mL Departure - Departure Time of Disposition: 13:52 Disposition: Home, Self-Care 01 Condition: Poor Clinical Impression: Hallucinations due to alcohol - Discharge Information Referrals: Susana Alfred MD [Primary Care Provider] - Forms: ED Department Discharge Additional Instructions: recommend starting multivitamin, recommends stopping alcohol, Please followup with your primary care provider in 3-5 days if not better, please call return to the emergency department with worsening of symptoms. - My Orders Last 24 Hours: My Active Orders 12/03/18 12:09 DRUG SCREEN, URINE [URCHEM] Stat UA W/MICROSCOPIC [URIN] Urgent - Assessment/Plan Last 24 Hours: My Active Orders 12/03/18 12:09 DRUG SCREEN, URINE [URCHEM] Stat UA W/MICROSCOPIC [URIN] Urgent Plan: Assessment Acuity = acute Site and laterality = confusion, memory problems, hallucinations Etiology = suspicious for Warnicke's encephalopathy Manifestations = none Location of injury = Home Lab values = CBC unremarkable, sodium low at 137 consistent hyponatria potassium low at 3.0 consistent hypokalemia magnesium low at 1.6 consistent hypomagnesemia a thyroid normal 2.042 Plan I did review lab work CT scan results with her recommend stopping alcohol abuse start a multivitamin follow-up primary care she declined detoxification treatment This note was dictated using [employer] voice recognition software please call with any questions on syntax or grammar. next field
--- NOTE | 2018-12-03 13:20 | CRLCT ---
INDICATION: Memory loss. TECHNIQUE: CT scan of the brain was performed without contrast. COMPARISON: CT scan of the brain 11/2017 FINDINGS: Extra-axial spaces: Mildly prominent. No extra-axial hemorrhage. Ventricles: Mildly prominent. No midline shift. Brain: No intra-axial hemorrhage. No intracranial mass. Diffuse decreased attenuation in the periventricular white matter. Atherosclerotic intracranial vascular calcification. Bony calvarium: No significant abnormalities. IMPRESSION: 1. No hemorrhage or intracranial acute radiographic abnormality. No change from previous. 2. Chronic changes suggesting cerebral volume loss and probable chronic ischemic microvascular decreased attenuation in the central white matter. Please note that all CT scans at this facility use dose modulation, iterative reconstruction, and/or weight-based dosing when appropriate to reduce radiation dose to as low as reasonably achievable. Dictated by Irineo Wynne MD @ Dec 03 2018 1:15PM Signed by Dr. Irineo Wynne @ Dec 03 2018 1:18PM
== END 2018-12-03 14:05 | disposition home or self-care (01) ==
LOC: JP.ED 11:02
DX: F10.251 Alcohol dependence with alcohol-induced psychotic disorder with hallucinations (principal); I10 Essential (primary) hypertension; I25.10 Atherosclerotic heart disease of native coronary artery without angina pectoris; I48.0 Paroxysmal atrial fibrillation; M19.90 Unspecified osteoarthritis, unspecified site; F32.9 Major depressive disorder, single episode, unspecified; Z87.891 Personal history of nicotine dependence; Z88.1 Allergy status to other antibiotic agents; Z88.8 Allergy status to other drugs, medicaments and biological substances; Z91.048 Other nonmedicinal substance allergy status; Z79.01 Long term (current) use of anticoagulants; Z79.899 Other long term (current) drug therapy
CPT/HCPCS: 36415; 70450; 80053; 83605; 83735; 84443; 85025; 85610; 99283; 99285-25

== ENCOUNTER 2018-12-03 17:05 | Inpatient (IN) | payer MEDICARE, BC ==
[2018-12-03] MEDS ORDERED: Polyethylene Glycol 3350 Powder 17 GM Packet PO PRN (18:33)
[2018-12-03] MEDS ORDERED: Ondansetron 4 MG/2 ML SDV IV PRN (18:33)
[2018-12-03] MEDS ORDERED: Sodium Chloride 0.9% 10 ML Syringe FLUSH PRN (18:33)
[2018-12-03] MEDS ORDERED: MVI, Adult with Vitamin K 10 ML, Thiamine 100 MG, Folic Acid 1 MG, Magnesium Sulfate 2 ... IV ONE ×5 (18:33)
[2018-12-03] MEDS ORDERED: Potassium Chloride 20 MEQ Tab.ER PO ONE ×2 (18:38→22:00)
--- NOTE | 2018-12-03 18:42 | PCM.HP.2 ---
H&P History of Present Illness - General Date of Service: 12/03/18 Admit Problem/Dx: Admission Diagnosis/Problem Admission Diagnosis/Problem Alcohol withdrawal delirium Source of Information: Patient, Family, Provider, RN Notes Reviewed History Limitations: Reports: No Limitations - History of Present Illness Initial Comments - Free Text/Narative: Ms. Aguilera is a 73-year-old woman who was admitted as a direct admission with delirium tremens secondary to alcohol withdrawal. She has a long-standing history of daily heavy alcohol use of approximately 12-16 ounces of geri per day. She experienced a fall earlier in the week with the fracture of her right ankle. She reports progressive weakness over the past few weeks, imbalance, and frequent falls. Since her fall earlier in the week she has decreased her alcohol use significantly, just a few ounces per day over the past 3 days. Since then she is experienced episodes of visual hallucinations and confusion. She was brought into the emergency department this morning for further evaluation. CT scan of the head showed evidence of cerebral atrophy, but no acute abnormalities. She reported a history of hallucinations versus vivid dreams occurring at night. She was offered admission to detox which she refused. After she arrived home had more difficulty with vivid visual hallucinations and was brought back to the hospital by her family for admission. - Related Data Allergies/Adverse Reactions: Allergies Allergy/AdvReac Type Severity Reaction Status Date / Time adhesive tape Allergy Itching Verified 12/03/18 11:25 minocycline Allergy Rash Verified 12/03/18 11:25 rituximab Allergy Itching Verified 12/03/18 11:25 tetracycline Allergy Rash Verified 12/03/18 11:25 Home Medications: Home Meds Acetaminophen [Tylenol Extra Strength] 500 mg PO Q6H PRN 03/07/17 [History] Apixaban [Eliquis] 5 mg PO BID 03/07/17 [History] DULoxetine [Cymbalta] 30 mg PO DAILY 03/07/17 [History] DULoxetine [Cymbalta] 60 mg PO DAILY 03/07/17 [History] Fenofibrate 160 mg PO DAILY 03/07/17 [History] Gabapentin [Neurontin] 900 mg PO TID 03/07/17 [History] Diltiazem [Cardizem CD] 120 mg PO DAILY #30 cap.cd 11/22/17 [Rx] Levothyroxine [Synthroid] 100 mcg PO ACBREAKFAST #30 tablet 11/22/17 [Rx] Albuterol [Ventolin HFA] 1 - 2 inh INH ASDIRECTED PRN 02/18/18 [History] Lisinopril [Prinivil] 40 mg PO DAILY 02/18/18 [History] Acetaminophen/HYDROcodone [[place] 325-5 MG] 1 - 2 tab PO Q6H PRN #24 tab [Rx] Metoprolol Succinate [Toprol XL] 100 mg PO BID 11/30/18 [History] Ondansetron [Zofran ODT] 4 mg PO Q6H #7 tab.dis 11/30/18 [Rx] Past Medical History HEENT History: Reports: Cataract Cardiovascular History: Reports: Afib, CAD, High Cholesterol, Hypertension Other Cardiovascular History: paroxysmal a- fib Respiratory History: Reports: SOB, Other (See Below) Other Respiratory History: breathing function test Gastrointestinal History: Reports: Other (See Below) Other Gastrointestinal History: prolapsed rectum Genitourinary History: Reports: None 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, Musculoskeletal History: Reports: Arthritis Other Musculoskeletal History: degenerative disc cervical Neurological History: Reports: Neuropathy, Peripheral, Other (See Below) Other Neuro History: tremor Psychiatric History: Reports: Addiction, Depression, Hallucinations Endocrine/Metabolic History: Reports: Hypothyroidism Hematologic History: Reports: Other (See Below) Other Hematologic History: lymphoma Oncologic (Cancer) History: Reports: Breast, Lymphoma Other Oncologic History: left breast Dermatologic History: Reports: Other (See Below) Other Dermatologic History: pruritus - Infectious Disease History Infectious Disease History: Reports: Chicken Pox, Measles, Shingles - Past Surgical History Head Surgeries/Procedures: Reports: None HEENT Surgical History: Reports: Cataract Surgery Cardiovascular Surgical History: Reports: Percutaneous Transluminal Angioplasty Respiratory Surgical History: Reports: None GI Surgical History: Reports: Appendectomy, Colonoscopy, Other (See Below) Other GI Surgeries/Procedures: rectum fixed with mesh Female Surgical History: Reports: Hysterectomy, Salpingo-Oophorectomy Endocrine Surgical History: Reports: None Neurological Surgical History: Reports: None Oncologic Surgical History: Reports: Biopsy of Breast Dermatological Surgical History: Reports: None Social & Family History - Family History Family Medical History: Noncontributory - Caffeine Use Caffeine Use: Reports: Coffee, Soda Other Caffeine Use: seldom H&P Review of Systems - Review of Systems: Review Of Systems: See Below General: Reports: Malaise, Weakness. Denies: Fever, Chills HEENT: Reports: No Symptoms Pulmonary: Reports: No Symptoms Cardiovascular: Reports: No Symptoms Gastrointestinal: Reports: No Symptoms Genitourinary: Reports: No Symptoms Musculoskeletal: Reports: No Symptoms Skin: Reports: No Symptoms Psychiatric: Reports: No Symptoms, Confusion, Hallucinations (Visual) Neurological: Reports: Confusion, Difficulty Walking, Weakness. Denies: Tingling, Tremors, Trouble Speaking, Change in Speech Hematologic/Lymphatic: Reports: No Symptoms Immunologic: Reports: No Symptoms Exam - Exam Exam: See Below - Vital Signs Vital Signs: Last Vital Signs Temp 98.9 F 12/03/18 18:00 Pulse 76 12/03/18 18:00 Resp 15 12/03/18 18:00 BP 146/82 H 12/03/18 18:00 Pulse Ox 92 L 12/03/18 18:00 - Exam Quality Assessment: DVT Prophylaxis General: Alert, Oriented, Cooperative, Moderate Distress HEENT: Conjunctiva Clear, Hearing Intact, Normal Nasal Septum, Posterior Pharynx Clear, Pupils Equal. No: Mucosa Moist & [place] Neck: Supple, Trachea Midline, +2 Carotid Pulse wo Bruit Lungs: Clear to Auscultation, Normal Respiratory Effort Cardiovascular: Regular Rate, Normal S1, Normal S2, Irregular Rhythm. No: Systolic Murmur, Diastolic Murmur GI/Abdominal Exam: Soft, Non-Tender, No Organomegaly, No Distention Back Exam: Normal Inspection, Full Range of Motion Extremities: Non-Tender, No Pedal Edema, Leg Pain (R ankle fracture, splinted) Skin: Warm, Dry Neurological: Cranial Nerves Intact, Strength Equal Bilateral, Normal Speech, Normal Tone, Sensation Intact. No: Focal Deficit Neuro Extensive - Mental Status: Alert, Oriented x3, Normal Mood/Affect, Normal Cognition, Memory Intact *Q Meaningful Use (ADM) - VTE *Q VTE Pharmacological Contraindications *Q: High INR Value - VTE Risk Assess *Q Each Risk Factor Represents 1 Point: None Total Score 1 Point Risk Factors: 0 Each Risk Factor Represents 2 Points: None Total Score 2 Point Risk Factors: 0 Each Risk Factor Represents 3 Points: Age 75 Years or Greater Total Score 3 Point Risk Factors: 3 Each Risk Factor Represents 5 Points: None Total Score 5 Point Risk Factors: 0 Venous Thromboembolism Risk Factor Score *Q: 3 Problem List Initiated/Reviewed/Updated: Yes Orders Last 24hrs: Active Orders 24 hr Category Date Time Status Patient Status [ADT] Routine ADT 12/03/18 18:33 Ordered Ambulate [RC] QID Care 12/03/18 18:33 Ordered CIWAA Assessment [RC] Q4H Care 12/03/18 18:33 Ordered Cardiac Monitoring [RC] .As Directed Care 12/03/18 18:35 Ordered Height and Weight [RC] DAILY Care 12/03/18 18:33 Ordered Intake and Output [RC] QSHIFT Care 12/03/18 18:33 Ordered Notify Provider Vital Signs [RC] ASDIRECTED Care 12/03/18 18:33 Ordered Notify Provider [RC] PRN Care 12/03/18 18:33 Ordered Oxygen Therapy [RC] PRN Care 12/03/18 18:33 Ordered Peripheral IV Care [RC] . DIRECTED Care 12/03/18 18:36 Ordered Pulse Oximetry [RC] CONTINUOUS Care 12/03/18 18:36 Ordered Up With Assistance [RC] ASDIRECTED Care 12/03/18 18:33 Ordered Up to Chair [RC] QID Care 12/03/18 18:33 Ordered VTE/DVT Education [RC] Per Unit Routine Care 12/03/18 18:33 Ordered Vital Signs [RC] Q4H Care 12/03/18 18:33 Ordered PT Evaluation and Treatment [CONS] Routine Cons 12/03/18 18:33 Ordered 2 Gram Sodium Diet [DIET] Diet 12/03/18 Dinner Ordered CBC WITH AUTO DIFF [HEME] AM Lab 12/04/18 05:11 Ordered COMPREHENSIVE METABOLIC PN,CMP [CHEM] AM Lab 12/04/18 05:11 Ordered MAGNESIUM [CHEM] AM Lab 12/04/18 05:11 Ordered Acetaminophen [Tylenol] Med 12/03/18 18:33 Ordered 650 mg PO Q4H PRN Apixaban [Eliquis] Med 12/03/18 21:00 Ordered 5 mg PO BID DULoxetine [Cymbalta] Med 12/04/18 09:00 Ordered 60 mg PO DAILY Diltiazem [Cardizem CD] Med 12/04/18 09:00 Ordered 120 mg PO DAILY Enoxaparin [Lovenox] Med 12/03/18 18:45 Ordered 40 mg SUBCUT DAILY Folic Acid Med 12/03/18 18:45 Ordered 1 mg PO DAILY Gabapentin [Neurontin] Med 12/03/18 21:00 Ordered 900 mg PO TID LORazepam [Ativan] Med 12/03/18 18:45 Ordered See Protocol IV ASDIRECTED LORazepam [Ativan] Med 12/03/18 18:45 Ordered See Protocol PO ASDIRECTED Levothyroxine [Synthroid] Med 12/04/18 07:30 Ordered 100 mcg PO ACBREAKFAST Lisinopril [Prinivil] Med 12/04/18 09:00 Ordered 40 mg PO DAILY MVI, Adult with Vitamin K [Infuvite Adult] 10 ml Med 12/03/18 18:33 Ordered Thiamine [Vitamin B-1] 100 mg Folic Acid 1 mg Magnesium Sulfate [Magnesium Sulfate 50%] 2 gm Sodium Chloride 0.9% [Normal Saline] 1,000 ml IV ONETIME Magnesium Oxide Med 12/03/18 18:45 Ordered 400 mg PO BID Magnesium Sulfate/Water [Magnesium Sulfate in Water Med 12/03/18 18:45 Ordered Premix] 2 gm Premix Bag 1 bag IV Q6H Metoprolol Succinate [Toprol XL] Med 12/03/18 21:00 Ordered 100 mg PO BID Ondansetron [Zofran] Med 12/03/18 18:33 Ordered 4 mg IV Q4H PRN Polyethylene Glycol 3350 [MiraLAX] Med 12/03/18 18:33 Ordered 17 gm PO DAILY PRN Potassium Chloride [Klor-Con M20] Med 12/03/18 18:38 Once 40 meq PO ONETIME ONE Potassium Chloride [Klor-Con M20] Med 12/03/18 22:00 Once 40 meq PO ONETIME ONE Sodium Chloride 0.9% @ 125 MLS/HR (1000ml) Med 12/03/18 18:45 Ordered Sodium Chloride 0.9% [Normal Saline] 1,000 ml IV ASDIRECTED Sodium Chloride 0.9% [Saline Flush] Med 12/03/18 18:33 Ordered 10 ml FLUSH ASDIRECTED PRN Thiamine [Vitamin B-1] Med 12/03/18 18:45 Ordered 100 mg PO DAILY Peripheral IV Insertion Adult [OM.PC] Routine Oth 12/03/18 18:33 Ordered Resuscitation Status Routine Resus Stat 12/03/18 18:33 Ordered Medication Orders Acetaminophen (Tylenol) 650 mg PO Q4H PRN PRN Reason: Pain (Mild 1-3)/fever Apixaban (Eliquis) 5 mg PO BID [facility] Diltiazem HCl (Cardizem Cd) 120 mg PO DAILY [facility] Enoxaparin Sodium (Lovenox) 40 mg SUBCUT DAILY [facility] Folic Acid (Folic Acid) 1 mg PO DAILY [facility] Gabapentin (Neurontin) 900 mg PO TID [facility] Multivitamins/Minerals 10 ml/Thiamine HCl 100 mg/ Folic Acid 1 mg/ Magnesium Sulfate 2 gm/ Sodium Chloride 1,015.2 mls @ 100 mls/hr IV ONETIME ONE Stop: 12/04/18 04:42 Magnesium Sulfate 2 gm/ Premix 50 mls @ 25 mls/hr IV Q6H NICOLA Stop: 12/04/18 02:44 Sodium Chloride (Normal Saline) 1,000 mls @ 125 mls/hr IV ASDIRECTED [facility] Levothyroxine Sodium (Synthroid) 100 mcg PO ACBREAKFAST [facility] Lisinopril (Prinivil) 40 mg PO DAILY [facility] Lorazepam (Ativan) 0 mg PO ASDIRECTED [facility]; Protocol Lorazepam (Ativan) 0 mg IV ASDIRECTED [facility]; Protocol Magnesium Oxide (Magnesium Oxide) 400 mg PO BID [facility] Metoprolol Succinate (Toprol Xl) 100 mg PO BID [facility] Non-Formulary Medication (Duloxetine [Cymbalta]) 60 mg PO DAILY [facility] Ondansetron HCl (Zofran) 4 mg IV Q4H PRN PRN Reason: Nausea/Vomiting Polyethylene Glycol (Miralax) 17 gm PO DAILY PRN PRN Reason: Constipation Potassium Chloride (Klor-Con M20) 40 meq PO ONETIME ONE Stop: 12/03/18 18:39 Potassium Chloride (Klor-Con M20) 40 meq PO ONETIME ONE Stop: 12/03/18 22:01 Sodium Chloride (Saline Flush) 10 ml FLUSH ASDIRECTED PRN PRN Reason: Keep Vein Open Thiamine HCl (Vitamin B-1) 100 mg PO DAILY [facility] Assessment/Plan Comment:: ASSESSMENT AND PLAN ALCOHOL WITHDRAWAL DELIRIUM-she has significantly decreased her alcohol intake over the last 3 days and as a result has developed visual hallucinations and delirium associated with her withdrawal. -Continue current dose of gabapentin -IV fluids for hydration -Banana bag -Oral thiamine and folate Acid supplements -Alcohol withdrawal protocol -Outpatient alcohol treatment RIGHT ANKLE FRACTURE -Continue use of current splint -Outpatient follow-up with orthopedics MAINTENANCE ISSUES -DVT prophylaxis; Lovenox 40 mg subcutaneous daily -GI prophylaxis; not indicated -Espinoza catheter; not indicated -Nutrition; 2 g sodium diet -Nicotine dependence; not required CODE STATUS-FULL CODE ADMISSION STATUS-patient will be admitted to inpatient status, expect at least a 2 night hospital stay for evaluation and management of problems as outlined above. At the time of this admission I do not reasonably expected evaluation and management of this problem will require more than a 96 hour hospital stay. DISPOSITION-anticipate discharge to home after the hospital stay. PRIMARY CARE PROVIDER-Dr. Alfred - Mortality Measure Prognosis:: Good
[2018-12-03] MEDS ORDERED: Sodium Chloride 0.9% 1,000 ML IV SCH (18:45)
[2018-12-03] MEDS ORDERED: LORazepam 1 MG Tab PO SCH (18:45)
[2018-12-03] MEDS ORDERED: Enoxaparin 40 MG/0.4 ML Syringe SUBCUT SCH (18:45)
[2018-12-03] MEDS: Folic Acid 1 MG Tab PO SCH (20:27)
[2018-12-03] MEDS: Thiamine 100 MG Tab PO SCH (20:27)
[2018-12-03] MEDS: Magnesium Sulfate/Water 2 GM in Premix Bag 1 BAG IV SCH (20:27)
[2018-12-03] MEDS: Magnesium Oxide 400 MG Tab PO SCH ×2 (20:27→21:36)
[2018-12-03] MEDS ORDERED: Apixaban 5 MG Tab PO SCH (21:00)
[2018-12-03] MEDS ORDERED: Metoprolol Succinate 25 MG Tab.ER PO SCH (21:00)
[2018-12-03] MEDS: Acetaminophen 325 MG Tab PO PRN (21:16)
[2018-12-03] MEDS ORDERED: Metoprolol Succinate 50 MG Tab.ER ONE (21:36)
[2018-12-03] MEDS: LORazepam 2 MG/ML SDV IV SCH ×2 (21:36→22:54)
[2018-12-03] MEDS: Gabapentin 300 MG Cap PO SCH (21:36)
[2018-12-04] MEDS: Magnesium Sulfate/Water 2 GM in Premix Bag 1 BAG IV SCH (00:06)
[2018-12-04] MEDS: LORazepam 2 MG/ML SDV IV SCH (03:49)
[2018-12-04] MEDS ORDERED: Sodium Chloride 0.9% 1,000 ML IV SCH (10:15)
--- NOTE | 2018-12-04 10:19 | PCM.PN ---
- General Info Date of Service: 12/04/18 Subjective Update: Ms. Aguilera shown ongoing evidence of alcohol withdrawal with persistent delirium. She is sedated this morning and unable to provide meaningful history concerning symptoms or review of systems. - Patient Data Vitals - Most Recent: Last Vital Signs Temp 97.1 F 12/04/18 07:47 Pulse 72 12/04/18 06:00 Resp 18 12/04/18 07:47 BP 140/91 H 12/04/18 07:47 Pulse Ox 92 L 12/04/18 07:47 Weight - Most Recent: 143 lb 3.996 oz I&O - Last 24 Hours: Intake & Output 12/03/18 12/04/18 12/04/18 22:59 06:59 14:59 Intake Total 330 1482 60 Balance 330 1482 60 Lab Results Last 24 Hours: Laboratory Results - last 24 hr 12/04/18 12/04/18 Range/Units 05:30 05:30 WBC 3.9 L (4.5-11.0) K/uL RBC 3.80 (3.30-5.50) M/uL Hgb 11.9 L (12.0-15.0) g/dL Hct 36.2 (36.0-48.0) % MCV 95 (80-98) fL MCH 31 (27-31) pg MCHC 33 (32-36) % Plt Count 236 (150-400) K/uL Neut % (Auto) 55 (36-66) % Lymph % (Auto) 18 L (24-44) % [place] % (Auto) 22 H (2-6) % Eos % (Auto) 4 (2-4) % Baso % (Auto) 1 (0-1) % Sodium 140 (140-148) mmol/L Potassium 3.6 (3.6-5.2) mmol/L Chloride 104 (100-108) mmol/L Carbon Dioxide 26 (21-32) mmol/L Anion Gap 9.9 (5.0-14.0) mmol/L BUN 13 (7-18) mg/dL Creatinine 0.7 (0.6-1.0) mg/dL Est Cr Clr Drug Dosing 57.44 mL/min Estimated GFR (MDRD) > 60 (>60) Glucose 111 H (74-106) mg/dL Calcium 8.2 L (8.5-10.1) mg/dL Magnesium 2.9 H D (1.8-2.4) mg/dL Total Bilirubin 0.5 (0.2-1.0) mg/dL AST 26 (15-37) U/L ALT 25 (12-78) U/L Alkaline Phosphatase 41 L (46-116) U/L Total Protein 6.1 L (6.4-8.2) g/dL Albumin 3.2 L (3.4-5.0) g/dL Globulin 2.9 (2.3-3.5) g/dL Albumin/Globulin Ratio 1.1 L (1.2-2.2) Med Orders - Current: Current Medications Acetaminophen (Tylenol) 650 mg PO Q4H PRN PRN Reason: Pain (Mild 1-3)/fever Last Admin: 12/03/18 21:16 Dose: 650 mg Apixaban (Eliquis) 5 mg PO BID [facility] Diltiazem HCl (Cardizem Cd) 120 mg PO DAILY [facility] Duloxetine HCl (Cymbalta) 60 mg PO DAILY [facility] Folic Acid (Folic Acid) 1 mg PO DAILY [facility] Last Admin: 12/03/18 20:27 Dose: 1 mg Gabapentin (Neurontin) 900 mg PO TID [facility] Last Admin: 12/03/18 21:36 Dose: 900 mg Sodium Chloride (Normal Saline) 1,000 mls @ 50 mls/hr IV ASDIRECTED [facility] Levothyroxine Sodium (Synthroid) 100 mcg PO ACBREAKFAST [facility] Lisinopril (Prinivil) 40 mg PO DAILY [facility] Lorazepam (Ativan) 0 mg PO ASDIRECTED [facility]; Protocol Last Admin: 12/03/18 20:26 Dose: 1 mg Lorazepam (Ativan) 0 mg IV ASDIRECTED [facility]; Protocol Last Admin: 12/04/18 03:49 Dose: 2 mg Magnesium Oxide (Magnesium Oxide) 400 mg PO BID [facility] Last Admin: 12/03/18 21:36 Dose: Not Given Metoprolol Succinate (Toprol Xl) 100 mg PO BID [facility] Ondansetron HCl (Zofran) 4 mg IV Q4H PRN PRN Reason: Nausea/Vomiting Polyethylene Glycol (Miralax) 17 gm PO DAILY PRN PRN Reason: Constipation Sodium Chloride (Saline Flush) 10 ml FLUSH ASDIRECTED PRN PRN Reason: Keep Vein Open Thiamine HCl (Vitamin B-1) 100 mg PO DAILY [facility] Last Admin: 12/03/18 20:27 Dose: 100 mg Discontinued Medications Apixaban (Eliquis) 5 mg PO BID [facility] Enoxaparin Sodium (Lovenox) 40 mg SUBCUT DAILY [facility] Last Admin: 12/03/18 20:27 Dose: 40 mg Multivitamins/Minerals 10 ml/Thiamine HCl 100 mg/ Folic Acid 1 mg/ Magnesium Sulfate 2 gm/ Sodium Chloride 1,015.2 mls @ 100 mls/hr IV ONETIME ONE Stop: 12/04/18 04:42 Last Admin: 12/03/18 20:03 Dose: 100 mls/hr Magnesium Sulfate 2 gm/ Premix 50 mls @ 25 mls/hr IV Q6H [facility] Stop: 12/04/18 02:44 Last Admin: 12/04/18 00:06 Dose: 25 mls/hr Sodium Chloride (Normal Saline) 1,000 mls @ 125 mls/hr IV ASDIRECTED [facility] Last Admin: 12/04/18 05:58 Dose: 125 mls/hr Metoprolol Succinate (Toprol Xl) 100 mg PO BID [facility] Last Admin: 12/03/18 21:37 Dose: 100 mg Metoprolol Succinate (Toprol Xl) Confirm Administered Dose 100 mg .ROUTE .STK- MED ONE Stop: 12/03/18 21:37 Last Admin: 12/03/18 22:22 Dose: Not Given Potassium Chloride (Klor-Con M20) 40 meq PO ONETIME ONE Stop: 12/03/18 18:39 Last Admin: 12/03/18 20:26 Dose: 40 meq Potassium Chloride (Klor-Con M20) 40 meq PO ONETIME ONE Stop: 12/03/18 22:01 Last Admin: 12/03/18 21:36 Dose: 40 meq - Exam General: Sedated, Lethargic Lungs: Clear to Auscultation, Normal Respiratory Effort Cardiovascular: Regular Rate, Regular Rhythm, No Murmurs GI/Abdominal Exam: Soft, Non-Tender, No Organomegaly, No Distention - Problem List Review Problem List Initiated/Reviewed/Updated: Yes - My Orders Last 24 Hours: My Active Orders 12/03/18 18:33 Patient Status [ADT] Routine Ambulate [RC] QID CIWAA Assessment [RC] Q4H Height and Weight [RC] DAILY Intake and Output [RC] QSHIFT Notify Provider Vital Signs [RC] ASDIRECTED Notify Provider [RC] PRN Oxygen Therapy [RC] PRN Up With Assistance [RC] ASDIRECTED Up to Chair [RC] QID Vital Signs [RC] Q2H PT Evaluation and Treatment [CONS] Routine Acetaminophen [Tylenol] 650 mg PO Q4H PRN Ondansetron [Zofran] 4 mg IV Q4H PRN Polyethylene Glycol 3350 [MiraLAX] 17 gm PO DAILY PRN Sodium Chloride 0.9% [Saline Flush] 10 ml FLUSH ASDIRECTED PRN Peripheral IV Insertion Adult [OM.PC] Routine Resuscitation Status Routine 12/03/18 18:35 Cardiac Monitoring [RC] Q6H 12/03/18 18:36 Peripheral IV Care [RC] Q6H Pulse Oximetry [RC] CONTINUOUS 12/03/18 18:45 Folic Acid 1 mg PO DAILY LORazepam [Ativan] See Protocol IV ASDIRECTED LORazepam [Ativan] See Protocol PO ASDIRECTED Magnesium Oxide 400 mg PO BID Thiamine [Vitamin B-1] 100 mg PO DAILY 12/03/18 21:00 Gabapentin [Neurontin] 900 mg PO TID 12/03/18 Dinner 2 Gram Sodium Diet [DIET] 12/04/18 07:30 Levothyroxine [Synthroid] 100 mcg PO ACBREAKFAST 12/04/18 09:00 Apixaban [Eliquis] 5 mg PO BID DULoxetine [Cymbalta] 60 mg PO DAILY Diltiazem [Cardizem CD] 120 mg PO DAILY Lisinopril [Prinivil] 40 mg PO DAILY Metoprolol Succinate [Toprol XL] 100 mg PO BID 12/04/18 10:15 Sodium Chloride 0.9% @ 50 MLS/HR(1000ml) Sodium Chloride 0.9% [Normal Saline] 1 ,000 ml IV ASDIRECTED - Plan Plan:: ASSESSMENT AND PLAN ALCOHOL WITHDRAWAL DELIRIUM-persistent symptoms of delirium -Continue current dose of gabapentin -IV fluids for hydration -Oral thiamine and folate Acid supplements -Alcohol withdrawal protocol -Outpatient alcohol treatment RIGHT ANKLE FRACTURE -Continue use of current splint -Outpatient follow-up with orthopedics MAINTENANCE ISSUES -DVT prophylaxis; Lovenox 40 mg subcutaneous daily -GI prophylaxis; not indicated -Espinoza catheter; not indicated -Nutrition; 2 g sodium diet -Nicotine dependence; not required CODE STATUS-FULL CODE ADMISSION STATUS-patient will be admitted to inpatient status, expect at least a 2 night hospital stay for evaluation and management of problems as outlined above. At the time of this admission I do not reasonably expected evaluation and management of this problem will require more than a 96 hour hospital stay. DISPOSITION-anticipate discharge to home after the hospital stay. PRIMARY CARE PROVIDER-Dr. Alfred
[2018-12-04] MEDS: Levothyroxine 100 MCG Tab PO SCH (10:52)
[2018-12-04] MEDS: Diltiazem 120 MG Cap.CD PO SCH (10:53)
[2018-12-04] MEDS: DULoxetine 30 MG Cap PO SCH (10:53)
[2018-12-04] MEDS: Apixaban 5 MG Tab PO SCH ×2 (10:54→21:20)
[2018-12-04] MEDS: Folic Acid 1 MG Tab PO SCH (10:54)
[2018-12-04] MEDS: Gabapentin 300 MG Cap PO SCH ×3 (10:55→21:20)
[2018-12-04] MEDS: Magnesium Oxide 400 MG Tab PO SCH ×2 (10:55→21:20)
[2018-12-04] MEDS: Metoprolol Succinate 50 MG Tab.ER PO SCH ×2 (10:56→21:20)
[2018-12-04] MEDS: Lisinopril 20 MG Tab PO SCH (10:56)
[2018-12-04] MEDS: Thiamine 100 MG Tab PO SCH (10:57)
[2018-12-05] MEDS: Acetaminophen 325 MG Tab PO PRN ×2 (03:13→12:13)
--- NOTE | 2018-12-05 10:17 | PCM.PN ---
- General Info Date of Service: 12/05/18 Subjective Update: Ms. Aguilera has been stable since yesterday with significant improvement. No longer hallucinating, she is alert and oriented this morning. Functional Status: Reports: Tolerating Diet, Ambulating, Urinating - Review of Systems General: Reports: Weakness. Denies: Fever, Chills Pulmonary: Reports: No Symptoms Cardiovascular: Reports: No Symptoms Gastrointestinal: Reports: No Symptoms Psychiatric: Denies: Confusion, Hallucinations - Patient Data Vitals - Most Recent: Last Vital Signs Temp 98.0 F 12/05/18 04:00 Pulse 67 12/05/18 06:00 Resp 23 H 12/05/18 06:00 BP 186/91 H 12/05/18 06:00 Pulse Ox 20 L 12/05/18 06:00 Weight - Most Recent: 143 lb 3.996 oz I&O - Last 24 Hours: Intake & Output 12/04/18 12/05/18 12/05/18 22:59 06:59 14:59 Intake Total 1252 697 Output Total 1300 500 Balance -48 197 Med Orders - Current: Current Medications Acetaminophen (Tylenol) 650 mg PO Q4H PRN PRN Reason: Pain (Mild 1-3)/fever Last Admin: 12/05/18 03:13 Dose: 650 mg Apixaban (Eliquis) 5 mg PO BID [facility] [place] Last Admin: 12/04/18 21:20 Dose: 5 mg Diltiazem HCl (Cardizem Cd) 120 mg PO DAILY [facility] [place] Last Admin: 12/04/18 10:53 Dose: 120 mg Duloxetine HCl (Cymbalta) 60 mg PO DAILY [facility] [place] Last Admin: 12/04/18 10:53 Dose: 60 mg Folic Acid (Folic Acid) 1 mg PO DAILY [facility] [place] Last Admin: 12/04/18 10:54 Dose: 1 mg Gabapentin (Neurontin) 900 mg PO TID [facility] [place] Last Admin: 12/04/18 21:20 Dose: 900 mg Levothyroxine Sodium (Synthroid) 100 mcg PO ACBREAKFAST [facility] [place] Last Admin: 12/04/18 10:52 Dose: 100 mcg Lisinopril (Prinivil) 40 mg PO DAILY [facility] [place] Last Admin: 12/04/18 10:56 Dose: 40 mg Lorazepam (Ativan) 0 mg PO ASDIRECTED [facility] [place]; Protocol Last Admin: 12/03/18 20:26 Dose: 1 mg Lorazepam (Ativan) 0 mg IV ASDIRECTED [facility] [place]; Protocol Last Admin: 12/04/18 03:49 Dose: 2 mg Magnesium Oxide (Magnesium Oxide) 400 mg PO BID [facility] [place] Last Admin: 12/04/18 21:20 Dose: 400 mg Metoprolol Succinate (Toprol Xl) 100 mg PO BID [facility] [place] Last Admin: 12/04/18 21:20 Dose: 100 mg Ondansetron HCl (Zofran) 4 mg IV Q4H PRN PRN Reason: Nausea/Vomiting Polyethylene Glycol (Miralax) 17 gm PO DAILY PRN PRN Reason: Constipation Last Admin: 12/04/18 10:57 Dose: 17 gm Sodium Chloride (Saline Flush) 10 ml FLUSH ASDIRECTED PRN PRN Reason: Keep Vein Open Thiamine HCl (Vitamin B-1) 100 mg PO DAILY [facility] [place] Last Admin: 12/04/18 10:57 Dose: 100 mg Discontinued Medications Apixaban (Eliquis) 5 mg PO BID [facility] [place] Enoxaparin Sodium (Lovenox) 40 mg SUBCUT DAILY [facility] [place] Last Admin: 12/03/18 20:27 Dose: 40 mg Multivitamins/Minerals 10 ml/Thiamine HCl 100 mg/ Folic Acid 1 mg/ Magnesium Sulfate 2 gm/ Sodium Chloride 1,015.2 mls @ 100 mls/hr IV ONETIME ONE Stop: 12/04/18 04:42 Last Admin: 12/03/18 20:03 Dose: 100 mls/hr Magnesium Sulfate 2 gm/ Premix 50 mls @ 25 mls/hr IV Q6H [facility] [place] Stop: 12/04/18 02:44 Last Admin: 12/04/18 00:06 Dose: 25 mls/hr Sodium Chloride (Normal Saline) 1,000 mls @ 125 mls/hr IV ASDIRECTED [facility] [place] Last Admin: 12/04/18 05:58 Dose: 125 mls/hr Sodium Chloride (Normal Saline) 1,000 mls @ 50 mls/hr IV ASDIRECTED [facility] [place] Last Admin: 12/04/18 15:55 Dose: 50 mls/hr Metoprolol Succinate (Toprol Xl) 100 mg PO BID [facility] [place] Last Admin: 12/03/18 21:37 Dose: 100 mg Metoprolol Succinate (Toprol Xl) Confirm Administered Dose 100 mg .ROUTE .STK- MED ONE Stop: 12/03/18 21:37 Last Admin: 12/03/18 22:22 Dose: Not Given Potassium Chloride (Klor-Con M20) 40 meq PO ONETIME ONE Stop: 12/03/18 18:39 Last Admin: 12/03/18 20:26 Dose: 40 meq Potassium Chloride (Klor-Con M20) 40 meq PO ONETIME ONE Stop: 12/03/18 22:01 Last Admin: 12/03/18 21:36 Dose: 40 meq - Exam Quality Assessment: DVT Prophylaxis General: Alert, Oriented, Cooperative, No Acute Distress Lungs: Clear to Auscultation, Normal Respiratory Effort Cardiovascular: Regular Rate, Regular Rhythm, No Murmurs GI/Abdominal Exam: Soft, Non-Tender, No Organomegaly, No Distention - Problem List Review Problem List Initiated/Reviewed/Updated: Yes - My Orders Last 24 Hours: My Active Orders 12/05/18 10:10 Convert IV to Saline Lock [OM.PC] Routine 12/05/18 10:12 Discontinue Telemetry Monitoring [Cardiac Monitoring Discontinue] [RC] Click to Edit - Plan Plan:: ASSESSMENT AND PLAN ALCOHOL WITHDRAWAL DELIRIUM-resolved, no longer hallucinating, alert and oriented -Continue current dose of gabapentin -Saline lock IV -Oral thiamine and folate Acid supplements -Alcohol withdrawal protocol -Outpatient alcohol treatment RIGHT ANKLE FRACTURE -Continue use of current splint -Outpatient follow-up with orthopedics, December 08 MAINTENANCE ISSUES -DVT prophylaxis; current therapy with Eliquis should provide adequate DVT prophylaxis -GI prophylaxis; not indicated -Espinoza catheter; not indicated -Nutrition; 2 g sodium diet -Nicotine dependence; not required CODE STATUS-FULL CODE ADMISSION STATUS-patient will be admitted to inpatient status, expect at least a 2 night hospital stay for evaluation and management of problems as outlined above. At the time of this admission I do not reasonably expected evaluation and management of this problem will require more than a 96 hour hospital stay. DISPOSITION-anticipate discharge to home after the hospital stay. PRIMARY CARE PROVIDER-Dr. Alfred
[2018-12-05] MEDS: Levothyroxine 100 MCG Tab PO SCH (10:18)
[2018-12-05] MEDS: Diltiazem 120 MG Cap.CD PO SCH (10:19)
[2018-12-05] MEDS: Lisinopril 20 MG Tab PO SCH (10:21)
[2018-12-05] MEDS: Metoprolol Succinate 50 MG Tab.ER PO SCH ×2 (10:22→22:07)
[2018-12-05] MEDS: DULoxetine 30 MG Cap PO SCH (10:23)
[2018-12-05] MEDS: Thiamine 100 MG Tab PO SCH (10:24)
[2018-12-05] MEDS: Apixaban 5 MG Tab PO SCH ×2 (10:24→22:06)
[2018-12-05] MEDS: Gabapentin 300 MG Cap PO SCH ×3 (10:25→22:06)
[2018-12-05] MEDS: Magnesium Oxide 400 MG Tab PO SCH ×2 (10:25→22:06)
[2018-12-05] MEDS: Folic Acid 1 MG Tab PO SCH (10:28)
[2018-12-06] MEDS: Acetaminophen 325 MG Tab PO PRN ×2 (02:24→12:49)
[2018-12-06] MEDS: Diltiazem 120 MG Cap.CD PO SCH (09:20)
[2018-12-06] MEDS: Levothyroxine 100 MCG Tab PO SCH (09:20)
[2018-12-06] MEDS: Thiamine 100 MG Tab PO SCH (09:21)
[2018-12-06] MEDS: DULoxetine 30 MG Cap PO SCH (09:21)
[2018-12-06] MEDS: Lisinopril 20 MG Tab PO SCH (09:21)
[2018-12-06] MEDS: Apixaban 5 MG Tab PO SCH (09:21)
[2018-12-06] MEDS: Folic Acid 1 MG Tab PO SCH (09:21)
[2018-12-06] MEDS: Gabapentin 300 MG Cap PO SCH (09:21)
[2018-12-06] MEDS: Magnesium Oxide 400 MG Tab PO SCH (09:21)
[2018-12-06] MEDS: Metoprolol Succinate 50 MG Tab.ER PO SCH (09:22)
--- NOTE | 2018-12-06 12:11 | PCM.DCSUM1 ---
Discharge Summary - Hospital Course Brief History: Ms. Aguilera is a 73-year-old woman who was admitted as a direct admission for management of acute alcohol withdrawal delirium including visual hallucinations. - Discharge Data Discharge Date: 12/06/18 Discharge Disposition: Home, W Home Health Agency 06 Condition: Fair - Referral to Home Health Date of Face to Face Encounter: 12/06/18 Reason for Homebound Status: Weakness Primary Care Physician: Susana Alfred MD Skilled Need: Home care services with home physical therapy and occupational therapy. - Discharge Diagnosis/Problem(s) (1) Alcohol withdrawal delirium SNOMED Code(s): 1554374 ICD Code: F10.231 - ALCOHOL DEPENDENCE WITH WITHDRAWAL DELIRIUM Status: Acute Current Visit: Yes (2) Weakness SNOMED Code(s): 12453677 ICD Code: R53.1 - WEAKNESS Status: Acute Current Visit: Yes (3) Hallucinations due to alcohol SNOMED Code(s): 3676863 ICD Code: F10.951 - ALCOHOL USE, UNSP W ALCOH-INDUCE PSYCH DISORDER W HALLUCIN Status: Acute Current Visit: No (4) History of atrial fibrillation SNOMED Code(s): 658489163 ICD Code: Z86.79 - PERSONAL HISTORY OF OTHER DISEASES OF THE CIRCULATORY SYSTEM Status: Chronic Current Visit: No (5) Hypothyroidism (acquired) SNOMED Code(s): 945033004 ICD Code: E03.9 - HYPOTHYROIDISM, UNSPECIFIED Status: Chronic Current Visit: No - Patient Summary/Data Consults: Consultations 12/03/18 18:33 PT Evaluation and Treatment [CONS] Routine Please Evaluate and Treat. PT Reason for Consult: Weakness This query below is only for informational purposes and is not editable. Hospital Course: Ms. Aguilera is a 73-year-old woman who was admitted as a direct admission with delirium tremens secondary to alcohol withdrawal. She has a long-standing history of daily heavy alcohol use of approximately 12-16 ounces of geri per day. She experienced a fall earlier in the week with the fracture of her right ankle. She reports progressive weakness over the past few weeks, imbalance, and frequent falls. Since her fall earlier in the week she has decreased her alcohol use significantly, just a few ounces per day over the past 3 days. Since then she has experienced episodes of visual hallucinations and confusion. She was brought into the emergency department this morning for further evaluation. CT scan of the head showed evidence of cerebral atrophy, but no acute abnormalities. She reported a history of hallucinations versus vivid dreams occurring at night. She was offered admission to detox which she refused. After she arrived home had more difficulty with vivid visual hallucinations and was brought back to the hospital by her family for admission. On admission she was given IV fluids for hydration. She was continued on her usual dose of gabapentin was felt to be sufficient for management of alcohol withdrawal. She was placed on alcohol withdrawal protocol and during the first 24 hours of admission did experience ongoing hallucinations and delirium secondary to alcohol withdrawal. By Friday she was stable and had had no hallucinations or evidence of significant withdrawal for a period of 24 hours. She was monitored and an additional 24 hours prior to discharge and was stable with no evidence of ongoing withdrawal at the time of discharge. Because of weekend discharge were unable to establish outpatient appointments for further evaluation and management of her chemical dependency. She has been instructed to avoid all further alcohol use. funeral planner will contact the patient and her tomorrow morning to set up outpatient chemical dependency treatment. Follow-up appointment will be scheduled with her primary care provider within one week. Activity will be as tolerated and she will resume her usual diet. - Patient Instructions Diet: Usual Diet as Tolerated Activity: As Tolerated Other/Special Instructions: Please schedule follow-up appointment with primary care provider within one week. funeral planner to contact patient tomorrow with information concerning outpatient treatment of alcoholism. - Discharge Plan *PRESCRIPTION DRUG MONITORING PROGRAM REVIEWED*: Not Applicable *COPY OF PRESCRIPTION DRUG MONITORING REPORT IN PATIENT CLYDE: Not Applicable Home Medications: Home Meds Acetaminophen [Tylenol Extra Strength] 500 mg PO Q6H PRN 03/07/17 [History] Apixaban [Eliquis] 5 mg PO BID 03/07/17 [History] DULoxetine [Cymbalta] 30 mg PO DAILY 03/07/17 [History] DULoxetine [Cymbalta] 60 mg PO DAILY 03/07/17 [History] Fenofibrate 160 mg PO DAILY 03/07/17 [History] Gabapentin [Neurontin] 900 mg PO TID 03/07/17 [History] Diltiazem [Cardizem CD] 120 mg PO DAILY #30 cap.cd 11/22/17 [Rx] Levothyroxine [Synthroid] 100 mcg PO ACBREAKFAST #30 tablet 11/22/17 [Rx] Albuterol [Ventolin HFA] 1 - 2 inh INH ASDIRECTED PRN 02/18/18 [History] Lisinopril [Prinivil] 40 mg PO DAILY 02/18/18 [History] Acetaminophen/HYDROcodone [[employer] 325-5 MG] 1 - 2 tab PO Q6H PRN #24 tab [Rx] Metoprolol Succinate [Toprol XL] 100 mg PO BID 11/30/18 [History] Ondansetron [Zofran ODT] 4 mg PO Q6H #7 tab.dis 11/30/18 [Rx] - Discharge Summary/Plan Comment DC Time >30 min.: No - Patient Data Vitals - Most Recent: Last Vital Signs Temp 97.5 F 12/06/18 09:22 Pulse 80 12/06/18 09:22 Resp 16 12/06/18 09:22 BP 137/65 12/06/18 09:22 Pulse Ox 96 12/06/18 09:22 Weight - Most Recent: 143 lb 3.996 oz I&O - Last 24 hours: Intake & Output 12/05/18 12/06/18 12/06/18 22:59 06:59 14:59 Intake Total 240 Output Total 1000 500 400 Balance -1000 -500 -160 Med Orders - Current: Current Medications Acetaminophen (Tylenol) 650 mg PO Q4H PRN PRN Reason: Pain (Mild 1-3)/fever Last Admin: 12/06/18 02:24 Dose: 650 mg Apixaban (Eliquis) 5 mg PO BID [facility] Last Admin: 12/06/18 09:21 Dose: 5 mg Diltiazem HCl (Cardizem Cd) 120 mg PO DAILY [facility] Last Admin: 12/06/18 09:20 Dose: 120 mg Duloxetine HCl (Cymbalta) 60 mg PO DAILY [facility] Last Admin: 12/06/18 09:21 Dose: 60 mg Folic Acid (Folic Acid) 1 mg PO DAILY [facility] Last Admin: 12/06/18 09:21 Dose: 1 mg Gabapentin (Neurontin) 900 mg PO TID [facility] Last Admin: 12/06/18 09:21 Dose: 900 mg Levothyroxine Sodium (Synthroid) 100 mcg PO ACBREAKFAST [facility] Last Admin: 12/06/18 09:20 Dose: 100 mcg Lisinopril (Prinivil) 40 mg PO DAILY [facility] Last Admin: 12/06/18 09:21 Dose: 40 mg Lorazepam (Ativan) 0 mg PO ASDIRECTED [facility]; Protocol Last Admin: 12/03/18 20:26 Dose: 1 mg Lorazepam (Ativan) 0 mg IV ASDIRECTED [facility]; Protocol Last Admin: 12/04/18 03:49 Dose: 2 mg Magnesium Oxide (Magnesium Oxide) 400 mg PO BID [facility] Last Admin: 12/06/18 09:21 Dose: 400 mg Metoprolol Succinate (Toprol Xl) 100 mg PO BID [facility] Last Admin: 12/06/18 09:22 Dose: 100 mg Ondansetron HCl (Zofran) 4 mg IV Q4H PRN PRN Reason: Nausea/Vomiting Polyethylene Glycol (Miralax) 17 gm PO DAILY PRN PRN Reason: Constipation Last Admin: 12/04/18 10:57 Dose: 17 gm Sodium Chloride (Saline Flush) 10 ml FLUSH ASDIRECTED PRN PRN Reason: Keep Vein Open Thiamine HCl (Vitamin B-1) 100 mg PO DAILY [facility] Last Admin: 12/06/18 09:21 Dose: 100 mg Discontinued Medications Apixaban (Eliquis) 5 mg PO BID [facility] Enoxaparin Sodium (Lovenox) 40 mg SUBCUT DAILY [facility] Last Admin: 12/03/18 20:27 Dose: 40 mg Multivitamins/Minerals 10 ml/Thiamine HCl 100 mg/ Folic Acid 1 mg/ Magnesium Sulfate 2 gm/ Sodium Chloride 1,015.2 mls @ 100 mls/hr IV ONETIME ONE Stop: 12/04/18 04:42 Last Admin: 12/03/18 20:03 Dose: 100 mls/hr Magnesium Sulfate 2 gm/ Premix 50 mls @ 25 mls/hr IV Q6H [facility] Stop: 12/04/18 02:44 Last Admin: 12/04/18 00:06 Dose: 25 mls/hr Sodium Chloride (Normal Saline) 1,000 mls @ 125 mls/hr IV ASDIRECTED [facility] Last Admin: 12/04/18 05:58 Dose: 125 mls/hr Sodium Chloride (Normal Saline) 1,000 mls @ 50 mls/hr IV ASDIRECTED [facility] Last Admin: 12/04/18 15:55 Dose: 50 mls/hr Metoprolol Succinate (Toprol Xl) 100 mg PO BID [facility] Last Admin: 12/03/18 21:37 Dose: 100 mg Metoprolol Succinate (Toprol Xl) Confirm Administered Dose 100 mg .ROUTE .STK- MED ONE Stop: 12/03/18 21:37 Last Admin: 12/03/18 22:22 Dose: Not Given Potassium Chloride (Klor-Con M20) 40 meq PO ONETIME ONE Stop: 12/03/18 18:39 Last Admin: 12/03/18 20:26 Dose: 40 meq Potassium Chloride (Klor-Con M20) 40 meq PO ONETIME ONE Stop: 12/03/18 22:01 Last Admin: 12/03/18 21:36 Dose: 40 meq - Exam Quality Assessment: Reports: DVT Prophylaxis General: Reports: Alert, Oriented, Cooperative, No Acute Distress Lungs: Reports: Clear to Auscultation, Normal Respiratory Effort Cardiovascular: Reports: Regular Rate, Regular Rhythm, No Murmurs GI/Abdominal Exam: Soft, Non-Tender, No Organomegaly, No Distention Psy/Mental Status: Denies: Hallucinations, Withdrawal Symptoms *Q Meaningful Use (DIS) - VTE *Q VTE Pharmacological Contraindications *Q: High INR Value
== END 2018-12-06 13:45 | disposition home health service (06) | DRG 897 ==
LOC: JP.ICU 17:05 → JP.MS 12-05 13:32
PROVIDERS: ADMIT Hospitalist; ATTEND Hospitalist
PROC: HZ2ZZZZ Detoxification Services for Substance Abuse Treatment (ICD-10-PCS; principal; 2018-12-03)
DX: F10.231 Alcohol dependence with withdrawal delirium (principal); I48.91 Unspecified atrial fibrillation; I25.10 Atherosclerotic heart disease of native coronary artery without angina pectoris; E78.00 Pure hypercholesterolemia, unspecified; I48.0 Paroxysmal atrial fibrillation; M19.91 Primary osteoarthritis, unspecified site; E03.9 Hypothyroidism, unspecified; R29.6 Repeated falls; F10.251 Alcohol dependence with alcohol-induced psychotic disorder with hallucinations; S82.891D Other fracture of right lower leg, subsequent encounter for closed fracture with routine healing; Z88.1 Allergy status to other antibiotic agents; Z88.8 Allergy status to other drugs, medicaments and biological substances; Z91.048 Other nonmedicinal substance allergy status; Z79.899 Other long term (current) drug therapy; Z98.49 Cataract extraction status, unspecified eye; Z90.710 Acquired absence of both cervix and uterus; Z90.49 Acquired absence of other specified parts of digestive tract
CPT/HCPCS: 36415; 80053; 83735; 85025; 97161-GP; 97530-GP; A9270-GY; J1650; J2060; J3411; J3475; J3490; J7030

== ENCOUNTER 2018-12-11 06:38 | Day surgery (SDC) | payer MEDICARE, BC ==
[2018-12-11] MEDS ORDERED: Nozin Nasal Sanitizer NASBOTH ONE (06:45)
[2018-12-11] MEDS ORDERED: Bupivacaine 0.5% 50 ML MDV ONE (06:53)
[2018-12-11] MEDS ORDERED: Propofol 200 MG/20 ML SDV ONE (07:14)
[2018-12-11] MEDS ORDERED: Neostigmine Methylsulfate 1 MG/ML 5 ML Syringe ONE (07:14)
[2018-12-11] MEDS ORDERED: Rocuronium 50 MG/5 ML Vial ONE (07:14)
[2018-12-11] MEDS ORDERED: Glycopyrrolate 0.2 MG/ML 5 ML MDV ONE (07:14)
[2018-12-11] MEDS ORDERED: Dexamethasone 4 MG/ML SDV ONE (07:14)
[2018-12-11] MEDS ORDERED: Ondansetron 4 MG/2 ML SDV ONE (07:14)
[2018-12-11] MEDS ORDERED: Succinylcholine 200 MG/10 ML MDV ONE (07:14)
[2018-12-11] MEDS ORDERED: Lactated Ringers 1,000 ML IV SCH (07:15)
[2018-12-11] MEDS ORDERED: fentaNYL 250 MCG/5 ML SDV ONE (07:16)
[2018-12-11] MEDS ORDERED: ceFAZolin 2 GM in Premix Bag 1 BAG IV ONE (07:30)
[2018-12-11] MEDS ORDERED: fentaNYL 100 MCG/2 ML SDV ONE (08:58)
[2018-12-11] MEDS ORDERED: Lactated Ringers 1,000 ML ONE (09:19)
[2018-12-11] MEDS ORDERED: Acetaminophen/HYDROcodone 325-5 MG Tab PO PRN (11:04)
--- NOTE | 2018-12-11 14:21 | OR ---
DATE OF PROCEDURE: 12/11/2018 SURGEON: Adam Cobian MD PREOPERATIVE DIAGNOSIS: Displaced bimalleolar fracture, right ankle. POSTOPERATIVE DIAGNOSES: 1. Displaced bimalleolar fracture, right ankle. 2. Osteoporosis. PROCEDURE: Open reduction and internal fixation, right ankle. ANESTHESIA: General. INDICATIONS: Etta are a 73-year-old female who sustained a slip and fall at her home resulting in a bimalleolar fracture of her right ankle. She presented to the emergency room the day after the incident and x-rays revealed fracture of the distal fibula and medial malleolus. Fracture was nondisplaced at that time. She was placed in a stirrup splint and discharged. Followup x-rays reveal lateral displacement of the fracture, and she now presents for open reduction and internal fixation. Risks, benefits, potential complications of the procedure were discussed. PROCEDURE IN DETAIL: After adequate anesthesia was obtained, the patient was placed supine with a tourniquet about the right upper thigh and a bump under the right hip. Right leg was prepped and draped in a sterile fashion. Leg was exsanguinated and tourniquet inflated to 300 mmHg pressure. A longitudinal incision was made over the lateral aspect of the ankle and carried down to the subcutaneous tissues to the subcutaneous border of the fibula. Fibular fracture was identified. The ankle was reduced medially and a precontoured distal fibular [employer] plate was then secured distally with locking screws and along the proximal shaft with 3.5 mm cortical screws. Incision was then made over the medial malleolus. Incision carried down over the fracture site. The fracture was reduced with a bone-holding forceps. Drill hole was then made in the cortex of the distal fragment and a 4.0 partially-threaded cancellous screw was placed. This had poor fixation and very soft bone. Due to concern about fixation, decision was made to proceed with a tension band wiring. An additional screw was also placed. Two drill holes were made proximal to the fracture site and roughly parallel to it. The two holes were connected using a towel clip and a 16-gauge needle was then passed into the tibial metaphysis around one of the screws and then back out the second hole in the bone. This was crossed over the fracture site in a [id number] fashion and then looped beneath both of the screw heads. Holding the fracture in a reduced position with the bone clamp, the wire was then tightened down. Final position was confirmed using image intensifier. The wire was cut, bent, and tapped into the bone. The screws were then tightened flush with the malleolus. Review of fluoroscopic imaging revealed that the ankle remained slightly displaced laterally and that the contoured plate allowed slight bend at the fracture site allowing the malposition. Contoured plate was removed. Two stacked 1/3 semitubular plates were then utilized with slight contour distally. This was secured to the lateral aspect of the fibula with 3.5mm cortical screws. Good fixation was obtained in the proximal shaft. Again, fairly osteoporotic bone is noted in the distal fibula and a fully threaded cancellous screw was used in the distal screw hole. Final position showed much improved reduction of the ankle in the mortise and better alignment of the distal fibula. AP, lateral, and mortise views were confirmed. The wounds were then irrigated. Tissue was then closed with 0 Vicryl in the deep layer, 2- 0 Vicryl and a running 3-0 Monocryl. Steri-Strips were applied. A well-padded AO plaster splint was then applied with the foot in neutral position. The patient tolerated the procedure well. There were no complications, taken from the operating room in a stable condition. Adam Cobian MD /[id number]
--- NOTE | 2018-12-11 14:48 | CRLCR ---
INDICATION: ORIF right ankle. COMPARISON: 12/08/2018. TECHNIQUE: 3 images were obtained of the right ankle in the operating room. 47 seconds of fluoroscopy time was used. IMPRESSION: Sideplate and screws affix due to distal fibular fracture in anatomic alignment. Two screws and wire affix the medial malleolus. Dictated by Joe Brian MD @ Dec 11 2018 2:44PM Signed by Dr. Joe Brian @ Dec 11 2018 2:46PM
== END 2018-12-11 12:45 | disposition home or self-care (01) ==
LOC: JP.SDS 06:38
PROVIDERS: ATTEND Specialist
DX: S82.841A Displaced bimalleolar fracture of right lower leg, initial encounter for closed fracture (principal); M81.0 Age-related osteoporosis without current pathological fracture; I25.10 Atherosclerotic heart disease of native coronary artery without angina pectoris; E78.00 Pure hypercholesterolemia, unspecified; I10 Essential (primary) hypertension; M19.90 Unspecified osteoarthritis, unspecified site; E03.9 Hypothyroidism, unspecified; F32.9 Major depressive disorder, single episode, unspecified; F10.20 Alcohol dependence, uncomplicated; Y92.009 Unspecified place in unspecified non-institutional (private) residence as the place of occurrence of the external cause; W01.0XXA Fall on same level from slipping, tripping and stumbling without subsequent striking against object, initial encounter; Z91.048 Other nonmedicinal substance allergy status; Z88.1 Allergy status to other antibiotic agents; Z88.8 Allergy status to other drugs, medicaments and biological substances; Z79.01 Long term (current) use of anticoagulants; Z79.899 Other long term (current) drug therapy
CPT/HCPCS: 27814; 76000; A9270; C1713; C1776; J0330; J0690; J1100; J2405; J2704; J2710; J3010; J3490; J7120